=== PATIENT | female | born 1940 | race Caucasian/White ===

== ENCOUNTER → 2016-09-23 | Outpatient (CLI) | payer MEDICARE, BC ==
--- NOTE | 2016-09-23 13:48 | PCN ---
DATE OF SERVICE: 09/23/2016 STRESS ECHOCARDIOGRAM: INDICATION: Chest pain. BASELINE HEART RATE: 72 BASELINE BLOOD PRESSURE: 148/56 MAXIMUM HEART RATE: 123 MAXIMUM BLOOD PRESSURE: 187/102 85% MPHR: 124 100% MPHR: 146 METS: 7.0 MAXIMUM STAGE REACHED: 2 TOTAL EXERCISE TIME: 6:10 Baseline EKG shows sinus rhythm, normal axis, normal intervals. Patient exercised on Rohan protocol for a total of 6 minutes achieving 7 METS, 84% of predicted maximum heart rate without chest pain. At peak exercise, there was [address] segment depression noted. Baseline echo shows normal left ventricular size, wall motion and systolic function. Post-exercise, there is normal hyperdynamic response of all segments of myocardium noted. CONCLUSION: 1. Average exercise tolerance. 2. Abnormal stress test by EKG criteria. 3. Negative stress echo. MTDD
== END | disposition home or self-care (01) ==
LOC: RADNMMAIN 08:51
PROVIDERS: ATTEND Internal Medicine Geriatric Medicine
DX: R94.39 Abnormal result of other cardiovascular function study (principal); R07.9 Chest pain, unspecified
CPT/HCPCS: 93017; 93350

== ENCOUNTER → 2016-12-22 | Outpatient (CLI) | payer MEDICARE, BC ==
--- NOTE | 2016-12-23 09:13 | MM ---
Reason for exam: screening (asymptomatic). Last mammogram was performed 1 year ago. History: Patient is postmenopausal and history of other cancer. Family history of breast cancer in paternal aunt. Cancelled Right Mammotome of the right breast, January 27, 2006. Cancelled Procedure of the right breast, January 27, 2006. Benign core biopsy of both breasts, 2005. Took estrogen for 9 years beginning at age 53. Took progesterone for 9 years beginning at age 53. MG 3D Screening Mammo W/Cad Bilateral CC and MLO view(s) were taken. Prior study comparison: December 17, 2015, bilateral MG 3d screening mammo w/cad. June 01, 2014, bilateral MG screening mammo w CAD. April 07, 2013, CAD bilateral diagnostic mammogram. The breast tissue is extremely dense which could obscure a lesion on mammography. Finding: There are typically benign vascular, dystrophic, round, diffuse/scattered and grouped calcifications in both breasts, greaster in the left breast. Previous mammotome biopsy in the right and left breast. There is no discrete abnormality. ASSESSMENT: Benign, BI-RAD 2 RECOMMENDATION: Routine screening mammogram of both breasts in 1 year.
== END | disposition home or self-care (01) ==
LOC: RADMAMWWP 08:51
PROVIDERS: ATTEND Internal Medicine Geriatric Medicine
DX: Z12.31 Encounter for screening mammogram for malignant neoplasm of breast (principal)
CPT/HCPCS: 77063; G0202

== ENCOUNTER 2017-10-29 17:50 | Emergency (ER) | payer MEDICARE, BC ==
[2017-10-29 18:54] VITALS: BP 167/79; PULSE 69; RESP 18; TEMP 98.7
[2017-10-29] MEDS ORDERED: PROPARACAINE 0.5% OPHTH DROPS 15 ML BTL LEFT EYE STA (19:07)
--- NOTE | 2017-10-29 19:20 | ED ---
Eye Problem HPI - General Chief complaint: Eye Problems Stated complaint: put wrong drops in eye Time Seen by Provider: 10/29/17 18:52 Source: patient, RN notes reviewed Mode of arrival: ambulatory Limitations: no limitations - History of Present Illness Initial comments: This is a 77-year-old female who presents to the emergency department with chief complaint of left eye irritation. Patient reports placing the wrong medication into her left eye. She states that she was recently prescribed fluocinonide 0.05% topical solution for her scalp. She states that she was in a schroeder to leave the house and accidentally put the fluocinonide into her left eye instead of the normal eyedrops. Patient does report some eye irritation. Denies any vision loss or significant pain. Denies fevers or chills, chest pain or shortness of breath, abdominal pain, nausea or vomiting. - Related Data Home Medications Medication Instructions Recorded Confirmed Ibuprofen [Motrin] 200 mg PO Q6HR PRN 08/30/13 08/30/13 Allergies Allergy/AdvReac Type Severity Reaction Status Date / Time codeine Allergy Nausea & Verified 10/29/17 18:51 Vomiting & Diarrhea Review of Systems ROS Statement: Those systems with pertinent positive or pertinent negative responses have been documented in the HPI. ROS Other: All systems not noted in ROS Statement are negative. Past Medical History Past Medical History: Osteoarthritis (OA) Additional Past Medical History / Comment(s): HYPOTENSION. IP ADMISSION IN APR 2013 WITH C-DIFFICILE. diverticulitis History of Any Multi-Drug Resistant Organisms: None Reported Past Surgical History: Appendectomy, Section, Heart Catheterization, Orthopedic Surgery Additional Past Surgical History / Comment(s): RUPTURED APPENDIX WITH LAPROSCOPIC REMOVAL (05/12/2013) Past Anesthesia/Blood Transfusion Reactions: No Reported Reaction Past Psychological History: No Psychological Hx Reported Smoking Status: Former smoker Past Alcohol Use History: Occasional Past Drug Use History: None Reported General Exam - General Exam Comments Initial Comments: General: Awake and alert, well-developed; in no apparent distress. HEENT: Head atraumatic, normocephalic. Pupils are equal, round and reactive to light. Mildly erythematous left conjunctiva. On fluorescein staining, no abrasions or ulcers are noted. No foreign body. Negative Radha's test. Extraocular movements intact. Oropharynx moist without erythema or exudate. Neck: Supple. Normal ROM. Cardiovascular: Regular rate and rhythm. No murmurs, rubs or gallops. Chest symmetrical. Respiratory: Lungs clear to auscultation bilaterally. No wheezes, rales or rhonchi. Normal respiratory effort with no use of accessory muscles. Musculoskeletal: Normal ROM, no tenderness bilateral upper and lower extremities. Ambulating normally. Skin: [place], warm and dry without rashes or lesions. Neurological: Alert and oriented x3. CN II-XII grossly intact. Speech is fluent and answers are appropriate. No focal neuro deficits. Psychiatric: Normal mood and affect. No overt signs of depression or anxiety noted. Limitations: no limitations Course Vital Signs 10/29/17 18:51 Temperature 98.7 F Pulse Rate 69 Respiratory 18 Rate Blood Pressure 167/79 O2 Sat by Pulse 100 Oximetry Medical Decision Making - Medical Decision Making This is a 77-year-old female who presents to the emergency department with chief complaint of left eye irritation. Patient reports accidentally placing fluoresceins denied 0.05% topical solution into her left eye instead of her normal eyedrops. Denies any vision changes or loss. Does report some eye irritation. On physical examination, conjunctiva is mildly erythematous. On fluorescein staining, no abrasions or ulcers are noted. Patient's eye was thoroughly flushed with 500 mL of normal saline. I was in contact with poison control who recommended flushing and staining, however had no other recommendations but supportive care. Patient's vital signs are stable and she is in no acute distress. She will be discharged home at this time. She is in agreement and voices understanding. All questions were answered. Disposition Clinical Impression: Irritation of left eye Disposition: HOME SELF-CARE Condition: Good Instructions: Eye Foreign Body (ED) Additional Instructions: Please follow up with primary care provider within 1-2 days. Return to emergency department if symptoms should worsen or any concerns arise. Is patient prescribed a controlled substance at d/c from ED?: No Referrals: Osvaldo Rouse MD [Primary Care Provider] - 1-2 days Time of Disposition: 19:26
== END 2017-10-29 19:41 | disposition home or self-care (01) ==
LOC: EC 17:50
DX: H57.8 Other specified disorders of eye and adnexa (principal); Z87.891 Personal history of nicotine dependence; Z88.5 Allergy status to narcotic agent; Z95.818 Presence of other cardiac implants and grafts
CPT/HCPCS: 99283

== ENCOUNTER → 2018-01-11 | Outpatient (CLI) | payer MEDICARE, BC ==
--- NOTE | 2018-01-12 11:27 | MM ---
Reason for exam: screening (asymptomatic). Last mammogram was performed 1 year and 1 month ago. History: Patient is postmenopausal and history of other cancer. Family history of breast cancer in paternal aunt. Cancelled Right Mammotome of the right breast, January 27, 2006. Cancelled Procedure of the right breast, January 27, 2006. Benign core biopsy of both breasts, 2005. Took estrogen for 9 years beginning at age 53. Took progesterone for 9 years beginning at age 53. Physical Findings: A clinical breast exam by your physician is recommended on an annual basis and results should be correlated with mammographic findings. MG 3D Screening Mammo W/Cad Bilateral CC and MLO view(s) were taken. Prior study comparison: December 22, 2016, bilateral MG 3d screening mammo w/cad. December 17, 2015, bilateral MG 3d screening mammo w/cad. The breast tissue is extremely dense which could obscure a lesion on mammography. There are benign appearing round vascular dystrophic calcifications bilaterally. Previous mammotome biopsy in the right and left breast. There is no discrete abnormality. ASSESSMENT: Benign, BI-RAD 2 RECOMMENDATION: Routine screening mammogram of both breasts in 1 year.
== END | disposition home or self-care (01) ==
LOC: RADMAMWWP 07:58
PROVIDERS: ATTEND Internal Medicine Geriatric Medicine
DX: Z12.31 Encounter for screening mammogram for malignant neoplasm of breast (principal)
CPT/HCPCS: 77063; 77067

== ENCOUNTER → 2018-09-15 | Outpatient (CLI) | payer MEDICARE, BC ==
[2018-09-15 10:57] LABS: Basophils % (A) 1 %; Eosinophils # (A) 0.1 k/uL (0-0.7); Eosinophils % (A) 2 %; HCT 40.4 % (34.0-46.0); HGB 13.4 gm/dL (11.4-16.0); Lymphocytes # (A) 1.4 k/uL (1.0-4.8); Lymphocytes % (A) 28 %; MCH 30.9 pg (25.0-35.0); MCHC 33.1 g/dL (31.0-37.0); MCV 93.5 fL (80.0-100.0); Monocytes # (A) 0.3 k/uL (0-1.0); Monocytes % (A) 7 %; Neutrophils # (A) 2.8 k/uL (1.3-7.7); Neutrophils % (A) 58 %; Platelet Count 397 k/uL (150-450); RBC 4.32 m/uL (3.80-5.40); RDW 13.5 % (11.5-15.5); WBC 4.9 k/uL (3.8-10.6)
[2018-09-15 16:02] LABS: Iron Saturation 37.36 (12.00-45.00)
== END | disposition home or self-care (01) ==
LOC: LABWHC1 09:41
PROVIDERS: ATTEND Dermatology Procedural Dermatology
DX: R20.2 Paresthesia of skin (principal); L50.1 Idiopathic urticaria; L65.0 Telogen effluvium; L20.89 Other atopic dermatitis
CPT/HCPCS: 36415; 82728; 83540; 83550; 84439; 84443; 85025; 86038

== ENCOUNTER → 2019-01-23 | Outpatient (CLI) | payer MEDICARE, BC ==
--- NOTE | 2019-01-23 10:23 | BD ---
EXAMINATION TYPE: Axial Bone Density DATE OF EXAM: 01/23/2019 COMPARISON: NONE CLINICAL HISTORY: Postmenopausal female Height: 5 FT Weight: 121 FRAX RISK QUESTIONS: Family History (Parent hip fracture): YES History of Fracture in Adulthood: YES Secondary Osteoporosis: RISK FACTORS HISTORY OF: History of Wrist Fracture: RT WRIST When: 2011 Surgery to Spine/Hip(right/left)/Wrist (right/left): RT WRIST When: 2011 Family History of Osteoporosis: YES Active: YES Postmenopausal woman: AGE 53 Take estrogen and/or progesterone medications: TOOK FOR A NUMBER OF YEARS NO LONGER MEDICATIONS: Additional Medications: CHOLESTEROL MEDS, Additional History: EXAM MEASUREMENTS: Bone mineral densitometry was performed using the Q-Sensei System. Bone mineral density as measured about the Lumbar spine is: ----- L1-L4(G/cm2): 1.197 T Score Values are as follows: ----- L2: -0.4 ----- L3: 0.4 ----- L4: 0.9 ----- L1-L4: 0.1 Bone mineral density has: INCREASED 5.4 % since study of: 2003 Bone mineral density about the R hip (g/cm2): 0.623 Bone mineral density about the L hip (g/cm2): 0.613 T Score values are as follows: -----R Neck: -3.0 -----L Neck: -3.1 -----R Total: -2.2 -----L Total: -2.3 Bone mineral density has: DECREASED -13.2 % since study of: 2003 IMPRESSION: Osteopenia (T Score between -2.5 and -1). There is slightly increased risk of fracture and the patient may be considered for treatment. Re-Screen 2-5 years. NOTE: T-SCORE=SD OF THE YOUNG ADULT MEAN.
--- NOTE | 2019-01-24 10:57 | MM ---
Reason for exam: screening (asymptomatic). Last mammogram was performed 1 year ago. History: Patient is postmenopausal and history of other cancer. Family history of breast cancer in paternal aunt. Cancelled Right Mammotome of the right breast, January 27, 2006. Cancelled Procedure of the right breast, January 27, 2006. Benign core biopsy of both breasts, 2005. Took estrogen for 9 years beginning at age 53. Took progesterone for 9 years beginning at age 53. Physical Findings: A clinical breast exam by your physician is recommended on an annual basis and results should be correlated with mammographic findings. MG 3D Screening Mammo W/Cad Bilateral CC and MLO view(s) were taken. Prior study comparison: January 11, 2018, bilateral MG 3d screening mammo w/cad. December 22, 2016, bilateral MG 3d screening mammo w/cad. The breast tissue is heterogeneously dense. This may lower the sensitivity of mammography. Benign appearing bilateral calcifications. No suspicious abnormality. Bilateral biopsy markers present. No significant changes when compared with prior studies. ASSESSMENT: Benign, BI-RAD 2 RECOMMENDATION: Routine screening mammogram of both breasts in 1 year.
== END | disposition home or self-care (01) ==
LOC: RADMAMWWP 09:20
PROVIDERS: ATTEND Internal Medicine Geriatric Medicine
DX: Z12.31 Encounter for screening mammogram for malignant neoplasm of breast (principal); M85.80 Other specified disorders of bone density and structure, unspecified site
CPT/HCPCS: 77063; 77067; 77080

== ENCOUNTER → 2019-02-22 | Outpatient (CLI) | payer MEDICARE, BC ==
--- NOTE | 2019-02-23 08:28 | CT ---
EXAMINATION TYPE: CT abdomen pelvis w con DATE OF EXAM: 02/22/2019 HISTORY: Diverticulitis, abdominal pain x1 month CT DLP: 374.9mGycm Automated Exposure Control for Dose Reduction was Utilized. CONTRAST: CT scan of the abdomen and pelvis is performed with IV Contrast, patient injected with 100 mL of Isov ue 300. COMPARISON: CT abdomen and pelvis May 19, 2013 FINDINGS: LUNG BASES: There is 5 mm groundglass nodule or focus of groundglass opacity right lower lobe axial i mage 1. LIVER/GB: Cholecystectomy clips are redemonstrated. PANCREAS: No significant abnormality is seen. SPLEEN: No significant abnormality is seen. ADRENALS: No significant abnormality is seen. KIDNEYS: No significant abnormality is seen. BOWEL: The oral contrast reaches the level of the proximal transverse colon and thus the evaluation o f distal bowel is suboptimal. Patient has little intra-abdominal fat making evaluation slightly subop timal. Diverticula in the sigmoid colon are redemonstrated without significant surrounding fluid or f at stranding. Mild/moderate wall thickening is noted. No suspicious small or large bowel dilatation. Surgical changes at base of cecum. UTERUS/ADNEXA: Retroverted uterus with calcified fibroids is now present. LYMPH NODES: No greater than 1cm abdominal or pelvic lymph nodes are appreciated. OSSEOUS STRUCTURES: Vacuum disc phenomenon with mild disc space narrowing L4-L5 level. Vacuum disc ph enomenon with fairly severe disc space narrowing and endplate sclerosis left L5-S1 level. Facet arthr opathy lower lumbar spine. OTHER: No significant additional abnormality is seen. IMPRESSION: Possible mild colitis sigmoid colon in the pelvis. Differential includes infectious and i nflammatory etiologies. Underlying diverticulosis redemonstrated.
== END | disposition home or self-care (01) ==
LOC: RADCTMAIN 14:19
PROVIDERS: ATTEND Internal Medicine Geriatric Medicine
DX: K57.30 Diverticulosis of large intestine without perforation or abscess without bleeding (principal)
CPT/HCPCS: 82565; 84520; 74177; 36415; Q9967

== ENCOUNTER 2019-03-10 12:17 | Day surgery (SDC) | payer MEDICARE, BC ==
[2019-03-08 17:25] VITALS: BMI 22.3
[~2019-03-10 12:17] MED LIST: LACTATED RINGERS 1,000 ML IV SCH; LIDOCAINE 1% 20 ML VIAL (10MG/ML) FOR IV START INTRADERMA PRN
[2019-03-10 13:03] VITALS: RESP 16; TEMP 98.2
[2019-03-10] MEDS ORDERED: MIDAZOLAM 2 MG/2 ML VIAL ONE (13:57)
[2019-03-10] MEDS ORDERED: fentaNYL (PF) 50 MCG/ML 2 ML AMP ONE (13:57)
[2019-03-10] MEDS ORDERED: PROPOFOL 10 MG/ML 20 ML VIAL IV ONE (13:57)
--- NOTE | 2019-03-10 14:15 | P.PCN ---
Date of Procedure: 03/10/19 Procedure(s) Performed: BRIEF HISTORY: Patient is a 78-year-old pleasant white female scheduled for an elective colonoscopy as a part of value should of chronic diarrhea for the last 2 months duration. She has bowel movements anywhere from 5-6 a day which are loose to watery in consistency but no blood or mucus in the stool. She is hence scheduled for colonoscopy to evaluate further. PROCEDURE PERFORMED: Colonoscopy with biopsy. PREOPERATIVE DIAGNOSIS: Chronic diarrhea. IV sedation per Anesthesia. PROCEDURE: After informed consent was obtained, the patient, was brought into the endoscopy unit. IV sedation was administered by Anesthesia under continuous monitoring. Digital rectal examination was normal. Initially the Olympus CF-160 flexible video colonoscope was then inserted in the rectum, gradually advanced into the cecum without any difficulty. Careful examination was performed as the scope was gradually being withdrawn. Ileocecal valve and the appendiceal orifice were visualized and appeared normal. Prep was excellent. Mucosa of the cecum, ascending colon, transverse colon, descending colon, sigmoid colon, and rectum appeared normal. Random biopsies were done from ascending and descending colon to rule out metastatic/collagenous colitis. Scattered sigmoidal diverticulosis. Retroflexion was performed in the rectum and no lesions were seen. The patient tolerated the procedure well. IMPRESSION: Normal-appearing colon from rectum to cecum with no evidence of colorectal neoplasia . Scattered sigmoidal diverticulosis. RECOMMENDATIONS: Findings of this examination were discussed with the patient as well as a family. She was advised to follow with the biopsy results. In the meantime she was advised to use [id number] Imodium 1 tablet were 3 times daily as needed.
[2019-03-10 14:20] VITALS: PULSE 74
[2019-03-10 15:09] VITALS: BP 117/76
== END 2019-03-10 15:04 | disposition home or self-care (01) ==
LOC: ORWHC2ENDO 12:17
PROVIDERS: ATTEND Internal Medicine Gastroenterology
DX: K52.9 Noninfective gastroenteritis and colitis, unspecified (principal); K57.30 Diverticulosis of large intestine without perforation or abscess without bleeding; M19.90 Unspecified osteoarthritis, unspecified site; Z88.5 Allergy status to narcotic agent; Z87.891 Personal history of nicotine dependence; Z79.899 Other long term (current) drug therapy; Z90.49 Acquired absence of other specified parts of digestive tract; Z98.890 Other specified postprocedural states
CPT/HCPCS: 88305; 45380; J2250; J3010; J2704

== ENCOUNTER 2019-05-05 12:59 | Inpatient (IN) | payer MEDICARE, BC ==
[2019-05-05] MEDS ORDERED: DIPH,PERTUS(ACELL)TETVAC-LF 0.5 ML VIAL IM ONE (13:15)
--- NOTE | 2019-05-05 13:20 | ED ---
General Adult HPI - General Chief complaint: Dizziness Stated complaint: syncope, head injury Time Seen by Provider: 05/05/19 13:00 Source: patient, RN notes reviewed, old records reviewed Mode of arrival: wheelchair - History of Present Illness Initial comments: This is a 78-year-old female presents emergency pertinent stating she's had a history of the past of diverticulitis. Patient states yesterday the abdominal pain started again and felt like her diverticulitis. Patient states she didn't eat or drink anything yesterday because he typically makes her symptoms worse. Patient states she started feeling lightheaded so she decided she has to go get some hot water or something in the kitchen so she doesn't get lightheaded. Patient states she was standing there in the kitchen and next thing she knows she woke up on the ground and she hit the back of her head and there was a little blood. Patient states she has a mild headache no neck pain. Patient denies any chest pain palpitations difficulty breathing shortness of breath. Patient states she still has lower abdominal pain she says is mostly on the left but there is a little bit on the right as well. Patient denies any recent fever chills per patient denies any dysuria hematuria urinary frequency. - Related Data Home Medications Medication Instructions Recorded Confirmed Rosuvastatin Calcium 5 mg PO DAILY 03/08/19 03/10/19 Allergies Allergy/AdvReac Type Severity Reaction Status Date / Time codeine Allergy Nausea & Verified 05/05/19 13:06 Vomiting & Diarrhea Review of Systems ROS Statement: Those systems with pertinent positive or pertinent negative responses have been documented in the HPI. ROS Other: All systems not noted in ROS Statement are negative. Past Medical History Past Medical History: Hyperlipidemia, Osteoarthritis (OA) Additional Past Medical History / Comment(s): having occasional diarrhea and stomach cramping, hx diverticulitis History of Any Multi-Drug Resistant Organisms: C-DIFF Date of last positivie culture/infection: 2013 Past Surgical History: Appendectomy, Section, Cholecystectomy, Heart Catheterization, Orthopedic Surgery Additional Past Surgical History / Comment(s): RUPTURED APPENDIX WITH LAPROSCOPIC REMOVAL (05/12/2013) rt wrist ORIF with plate and screws, manda cataracts Past Anesthesia/Blood Transfusion Reactions: No Reported Reaction Past Psychological History: No Psychological Hx Reported Smoking Status: Former smoker Past Alcohol Use History: Rare Past Drug Use History: None Reported - Past Family History Father Family Medical History: Cancer Additional Family Medical History / Comment(s): skin General Exam - General Exam Comments Initial Comments: GENERAL: Patient is well-developed and well-nourished. Patient is nontoxic and well- hydrated and is in mild distress. ENT: Neck is soft and supple. No significant lymphadenopathy is noted. Oropharynx is clear. Moist mucous membranes. Neck has full range of motion without eliciting any pain. EYES: The sclera were anicteric and conjunctiva were pink and moist. Extraocular movements were intact and pupils were equal round and reactive to light. Eyelids were unremarkable. PULMONARY: Unlabored respirations. Good breath sounds bilaterally. No audible rales rhonchi or wheezing was noted. CARDIOVASCULAR: There is a regular rate and rhythm without any murmurs gallops or rubs. ABDOMEN: Patient has tenderness in the left lower quadrant palpation and slight tenderness in the right lower quadrant. SKIN: Patient has a small laceration back of the head NEUROLOGIC: Patient is alert and oriented x3. Cranial nerves II through XII are grossly intact. Motor and sensory are also intact. Normal speech, volume and content. Symmetrical smile. MUSCULOSKELETAL: Normal extremities with adequate strength and full range of motion. No lower extremity swelling or edema. No calf tenderness. LYMPHATICS: No significant lymphadenopathy is noted PSYCHIATRIC: Normal psychiatric evaluation. Course Vital Signs 05/05/19 13:02 Temperature 98.6 F Pulse Rate 81 Respiratory 18 Rate Blood Pressure 150/77 O2 Sat by Pulse 100 Oximetry Procedures - Laceration Laceration #1 Consent Obtained: verbal consent Indication: laceration Site: scalp Description: linear Depth: simple, single layer Size of Sutures: other ([place]) Number of Sutures: 2 Technique: simple, interrupted Complications: pain Patient Tolerated Procedure: well Medical Decision Making - Medical Decision Making EKG shows normal sinus rhythm at 76 bpm NC interval is 172 QRS is 70 QT interval 46 QTC is 456. Patient's EKG shows no ST segment elevation or depression. - Lab Data Result diagrams: 05/05/19 13:24 05/05/19 13:24 Lab Results 05/05/19 05/05/19 05/05/19 Range/Units 13:24 13:24 13:24 WBC 14.2 H (3.8-10.6) k/uL RBC 4.54 (3.80-5.40) m/uL Hgb 14.1 (11.4-16.0) gm/dL Hct 43.0 (34.0-46.0) % MCV 94.6 (80.0-100.0) fL MCH 31.1 (25.0-35.0) pg MCHC 32.8 (31.0-37.0) g/dL RDW 13.2 (11.5-15.5) % Plt Count 331 (150-450) k/uL Neutrophils % 90 % Lymphocytes % 4 % Monocytes % 5 % Eosinophils % 0 % Basophils % 0 % Neutrophils # 12.7 H (1.3-7.7) k/uL Lymphocytes # 0.6 L (1.0-4.8) k/uL Monocytes # 0.7 (0-1.0) k/uL Eosinophils # 0.1 (0-0.7) k/uL Basophils # 0.0 (0-0.2) k/uL PT 9.8 (9.0-12.0) sec INR 0.9 (<1.2) APTT 23.7 (22.0-30.0) sec Sodium 137 (137-145) mmol/L Potassium 4.0 (3.5-5.1) mmol/L Chloride 102 (98-107) mmol/L Carbon Dioxide 25 (22-30) mmol/L Anion Gap 10 mmol/L BUN 11 (7-17) mg/dL Creatinine 0.57 (0.52-1.04) mg/dL Est GFR (CKD-EPI)AfAm >90 (>60 ml/min/1.73 sqM) Est GFR (CKD-EPI)NonAf >90 (>60 ml/min/1.73 sqM) Glucose 135 H (74-99) mg/dL Calcium 9.0 (8.4-10.2) mg/dL Magnesium 2.0 (1.6-2.3) mg/dL Total Bilirubin 1.0 (0.2-1.3) mg/dL AST 29 (14-36) U/L ALT 15 (4-34) U/L Alkaline Phosphatase 97 (38-126) U/L Troponin I (0.000-0.034) ng/mL Total Protein 7.1 (6.3-8.2) g/dL Albumin 4.1 (3.5-5.0) g/dL Urine Color Urine Appearance (Clear) Urine pH (5.0-8.0) Ur Specific [place] (1.001-1.035) Urine Protein (Negative) Urine Glucose (UA) (Negative) Urine Ketones (Negative) Urine Blood (Negative) Urine Nitrite (Negative) Urine Bilirubin (Negative) Urine Urobilinogen (<2.0) mg/dL Ur Leukocyte Esterase (Negative) Urine RBC (0-5) /hpf Urine WBC (0-5) /hpf 05/05/19 05/05/19 Range/Units 13:24 14:59 WBC (3.8-10.6) k/uL RBC (3.80-5.40) m/uL Hgb (11.4-16.0) gm/dL Hct (34.0-46.0) % MCV (80.0-100.0) fL MCH (25.0-35.0) pg MCHC (31.0-37.0) g/dL RDW (11.5-15.5) % Plt Count (150-450) k/uL Neutrophils % % Lymphocytes % % Monocytes % % Eosinophils % % Basophils % % Neutrophils # (1.3-7.7) k/uL Lymphocytes # (1.0-4.8) k/uL Monocytes # (0-1.0) k/uL Eosinophils # (0-0.7) k/uL Basophils # (0-0.2) k/uL PT (9.0-12.0) sec INR (<1.2) APTT (22.0-30.0) sec Sodium (137-145) mmol/L Potassium (3.5-5.1) mmol/L Chloride (98-107) mmol/L Carbon Dioxide (22-30) mmol/L Anion Gap mmol/L BUN (7-17) mg/dL Creatinine (0.52-1.04) mg/dL Est GFR (CKD-EPI)AfAm (>60 ml/min/1.73 sqM) Est GFR (CKD-EPI)NonAf (>60 ml/min/1.73 sqM) Glucose (74-99) mg/dL Calcium (8.4-10.2) mg/dL Magnesium (1.6-2.3) mg/dL Total Bilirubin (0.2-1.3) mg/dL AST (14-36) U/L ALT (4-34) U/L Alkaline Phosphatase (38-126) U/L Troponin I <0.012 (0.000-0.034) ng/mL Total Protein (6.3-8.2) g/dL Albumin (3.5-5.0) g/dL Urine Color Light Yellow Urine Appearance Clear (Clear) Urine pH 7.0 (5.0-8.0) Ur Specific [place] 1.028 (1.001-1.035) Urine Protein Negative (Negative) Urine Glucose (UA) Negative (Negative) Urine Ketones Trace H (Negative) Urine Blood Moderate H (Negative) Urine Nitrite Negative (Negative) Urine Bilirubin Negative (Negative) Urine Urobilinogen <2.0 (<2.0) mg/dL Ur Leukocyte Esterase Negative (Negative) Urine RBC 20 H (0-5) /hpf Urine WBC 1 (0-5) /hpf Disposition Clinical Impression: Abdominal pain, Scalp laceration, Enteritis Disposition: ADMITTED IP TO THIS [facility] Referrals: Osvaldo Rouse MD [Primary Care Provider] - 1-2 days Time of Disposition: 16:28
[2019-05-05] MEDS ORDERED: ONDANSETRON 4 MG/2 ML VIAL IVP STA (13:23)
[2019-05-05] MEDS ORDERED: SODIUM CHLORIDE 0.9% 1,000 ML IV ONE ×2 (13:23→16:31)
[2019-05-05 13:41] LABS: Basophils % (A) 0 %; Eosinophils # (A) 0.1 k/uL (0-0.7); Eosinophils % (A) 0 %; HGB 14.1 gm/dL (11.4-16.0); Lymphocytes # (A) 0.6 k/uL (1.0-4.8); Lymphocytes % (A) 4 %; MCH 31.1 pg (25.0-35.0); MCHC 32.8 g/dL (31.0-37.0); MCV 94.6 fL (80.0-100.0); Mean Platelet Volume 7.1; Monocytes # (A) 0.7 k/uL (0-1.0); Monocytes % (A) 5 %; Neutrophils # (A) 12.7 k/uL (1.3-7.7); Neutrophils % (A) 90 %; Platelet Count 331 k/uL (150-450); RBC 4.54 m/uL (3.80-5.40); RDW 13.2 % (11.5-15.5); WBC 14.2 k/uL (3.8-10.6)
[2019-05-05 13:50] LABS: ALT 15 U/L (4-34); AST 29 U/L (14-36); African American GFR (CKD) >90 (>60 ml/min/1.73 sqM); Albumin 4.1 g/dL (3.5-5.0); Alkaline Phosphatase 97 U/L (38-126); Anion Gap 10 mmol/L; Blood Urea Nitrogen 11 mg/dL (7-17); Carbon Dioxide 25 mmol/L (22-30); Chloride 102 mmol/L (98-107); Glucose 135 mg/dL (74-99); Non-African American GFR(CKD) >90 (>60 ml/min/1.73 sqM); Sodium 137 mmol/L (137-145); Total Protein 7.1 g/dL (6.3-8.2)
[2019-05-05 13:52] LABS: INR 0.9 (<1.2); Partial Thromboplastin Time 23.7 sec (22.0-30.0); Prothrombin Time 9.8 sec (9.0-12.0)
--- NOTE | 2019-05-05 14:25 | CT ---
EXAMINATION TYPE: CT brain marshaine wo con DATE OF EXAM: 05/05/2019 COMPARISON: None HISTORY: posterior head trauma CT DLP: 1243 mGycm Automated exposure control for dose reduction was used. TECHNIQUE: CT scan of the head and cervical spine are performed without contrast. FINDINGS: Mild generalized degenerative change. Faint low-attenuation within the white matter is no nspecific most pronounced in the superior left parietal lobe. No midline shift or mass effect. No acu te hemorrhage. Intracranial atherosclerotic changes noted. Calvarium intact. Posteriorly along the po sterior right calvarium there is an area of low attenuation difficult to determine is whether this re presents fat attenuation or air correlate for soft tissue injury along the posterior right calvarium with possible laceration and small hematoma. No calvarial fracture. Osteoma the right parietal bone a lso noted incidentally. Calcifications in the basal ganglia noted. Assessment spinal canal is limited by noncontrast technique, resolution and artifact. There is severe degenerative disc disease at C3-4, C4-5 and C5-C6. Posterior spondylosis and possible canal stenosis with bilateral foraminal encroachment suspected. Recommend follow-up MRI. No acute fracture. Atheros clerotic change of the aortic arch incidentally noted. Pleural-based thickening greater on the right involving the lung apices. IMPRESSION: 1. There is no acute fracture or dislocation evident in the cervical spine. Severe multilevel degener ative disc disease with suspected canal stenosis and foraminal encroachment as discussed above. Recom mend follow-up MRI. 2. No acute intracranial hemorrhage, mass effect, or midline shift is seen. Degenerative and nonspeci fic white matter changes most typical remote microvascular ischemia. Soft tissue injury with lacerati on and subcutaneous emphysema along the posterior right parietal bone correlate clinically. No calvar ial fracture.
--- NOTE | 2019-05-05 14:38 | CT ---
EXAMINATION TYPE: CT abdomen pelvis w con DATE OF EXAM: 05/05/2019 COMPARISON: Prior CT 02/22/2019 HISTORY: llq pain, posterior head trauma CT DLP: 598.9 mGycm Automated exposure control for dose reduction was used. TECHNIQUE: Helical acquisition of images from the lung bases through the pelvis have been completed. CONTRAST: Performed without Oral Contrast and with IV Contrast, patient injected with 100 mL of Isovue 300. FINDINGS: Umbilical hernia contains fat. Fluid-filled stomach is noted incidentally. LUNG BASES: No significant abnormality is appreciated. AORTA: No significant abnormality is appreciated. LIVER/GB: Liver shows no mass. There are mildly dilated intrahepatic biliary ducts likely due to post cholecystectomy change. PANCREAS: No significant abnormality is seen. SPLEEN: No significant abnormality is seen. ADRENALS: No significant abnormality is seen. KIDNEYS: No significant abnormality is seen. REPRODUCTIVE ORGANS: The uterus is bulky and shows associated calcifications suggesting fibroid uteru s. BOWEL: Small bowel loops show some wall thickening, questionable hyperemia, some loops of bowel show luminal fluid density. The colon mitchell show some marked thickening within the pelvis. There is assoc iated diverticular change. Patient is post appendectomy. No oral contrast administered. Mesenteric fa t shows some increased attenuation possibly due to inflammatory change. FREE AIR: No Free Air visible. ASCITES: None visible. PELVIC ADENOPATHY: None visualized. RETROPERITONEAL ADENOPATHY: No Retroperitoneal Adenopathy visible. URINARY BLADDER: No significant abnormality is seen. OSSEOUS STRUCTURES: Degenerative disc changes are present in the lower lumbar spine. There is associ ated facet arthropathy. There is a spinal curvature. IMPRESSION: CORRELATE FOR ENTERITIS, COLITIS, POSSIBLE PERITONITIS. DIVERTICULOSIS. FOLLOW-UP IS SUGGESTED.
[2019-05-05 15:17] LABS: Appearance,Urine Clear (Clear); Bilirubin,Urine Negative (Negative); Blood,Urine Moderate (Negative); Color,Urine Light Yellow; Glucose,Urine (UA) Negative (Negative); Ketones,Urine Trace (Negative); Leukocyte Esterase,Urine Negative (Negative); Nitrite,Urine Negative (Negative); Protein,Urine Negative (Negative); RBC,Urine 20 /hpf (0-5); Specific Gravity,Urine 1.028 (1.001-1.035); Urobilinogen,Urine <2.0 mg/dL (<2.0); WBC,Urine 1 /hpf (0-5)
--- NOTE | 2019-05-05 15:48 | XR ---
EXAMINATION TYPE: XR chest 2V DATE OF EXAM: 05/05/2019 COMPARISON: Prior chest x-ray 08/30/2010 HISTORY: Chest pain TECHNIQUE: Frontal and lateral views of the chest are obtained. FINDINGS: There is no focal air space opacity, pleural effusion, or pneumothorax seen. The cardiac silhouette size is within normal limits. The osseous structures are intact. There are overlying car diac leads. Surgical clips are present in the right upper quadrant. The aorta is dense. Evidence of p revious breast biopsy is suspected. IMPRESSION: No acute cardiopulmonary process.
[2019-05-05] MEDS ORDERED: metroNIDAZOLE-NS PMX 500 MG in SALINE 1 100ML.BAG IVPB STA (16:33)
[2019-05-05] MEDS ORDERED: PIPERACILLIN-TAZOBACTAM 3.375 GM in SODIUM CHLORIDE 0.9% 100 ML IVPB STA (16:34)
[2019-05-05] MEDS ORDERED: ACETAMINOPHEN TAB 325 MG TAB PO STA (16:45)
[2019-05-05] MEDS ORDERED: ACETAMINOPHEN TAB 325 MG TAB PO PRN (21:22)
[2019-05-05] MEDS: MELATONIN 5 MG TABLET PO PRN (22:04)
[2019-05-05] MEDS: ATORVASTATIN 10 MG TAB PO SCH (22:04)
[2019-05-05] MEDS: metroNIDAZOLE-NS PMX 500 MG in SALINE 1 100ML.BAG IVPB SCH (23:26)
[2019-05-06] MEDS: PIPERACILLIN-TAZOBACTAM 3.375 GM in SODIUM CHLORIDE 0.9% 100 ML IVPB SCH ×3 (00:30→16:43)
[2019-05-06] MEDS: metroNIDAZOLE-NS PMX 500 MG in SALINE 1 100ML.BAG IVPB SCH ×4 (05:48→23:29)
[2019-05-06] MEDS: PANTOPRAZOLE 40 MG/10 ML VIAL IVP SCH (08:35)
--- NOTE | 2019-05-06 11:41 | P.GSCN ---
History of Present Illness Consult date: 05/06/19 Reason for Consult: Diverticulitis History of present illness: This a 78-year-old female with previous history of diverticula is. Patient stat es that she has had crampy abdominal pain in the left lower quadrant for several days prior to admission. Patient that she was dehydrated and had a syncopal episode at home. She had a scalp laceration stapled in the emergency room. She still has complaints of some left-sided abdominal pain. Her CAT scan is suspicious for diverticulitis and possible enteritis. The colon is quite thickened in the pelvis. And there is some thickened adjacent loops of small bowel. Patient isn't she's had multiple attacks of diverticulitis in the past. Past Medical History Past Medical History: Hyperlipidemia, Osteoarthritis (OA) Additional Past Medical History / Comment(s): having occasional diarrhea and stomach cramping, hx diverticulitis History of Any Multi-Drug Resistant Organisms: C-DIFF Year Discovered:: 2013 MDRO Source:: stool Past Surgical History: Appendectomy, Section, Cholecystectomy, Heart Catheterization, Orthopedic Surgery Additional Past Surgical History / Comment(s): RUPTURED APPENDIX WITH LAPROSCOPIC REMOVAL (05/12/2013) rt wrist ORIF with plate and screws, manda cataracts Past Anesthesia/Blood Transfusion Reactions: No Reported Reaction Past Psychological History: No Psychological Hx Reported Smoking Status: Former smoker Past Alcohol Use History: Occasional Additional Past Alcohol Use History / Comment(s): quit smoking 30-40 yrs ago, smoked less than 1ppd Past Drug Use History: None Reported - Past Family History Father Family Medical History: Cancer Additional Family Medical History / Comment(s): skin Medications and Allergies Home Medications Medication Instructions Recorded Confirmed Type Rosuvastatin Calcium 5 mg PO HS 03/08/19 05/05/19 History Alendronate Sodium [Fosamax] 70 mg PO TU 05/05/19 05/05/19 History Allergies Allergy/AdvReac Type Severity Reaction Status Date / Time codeine Allergy Nausea & Verified 05/05/19 16:31 Vomiting & Diarrhea Surgical - Exam Vital Signs Temp Pulse Resp BP Pulse Ox 98.6 F 81 18 150/77 100 05/05/19 13:02 05/05/19 13:02 05/05/19 13:02 05/05/19 13:02 05/05/19 13:02 - General well developed - Eyes PERRL - ENT normal pinna - Neck no masses - Respiratory normal expansion - Cardiovascular Rhythm: regular - Abdomen Abdomen soft. There is tenderness left lower quadrant. There is no rebound or guarding Results - Labs 05/05/19 13:24 05/05/19 13:24 Abnormal Lab Results - Last 24 Hours (Table) 05/05/19 05/05/19 05/05/19 Range/Units 13:24 13:24 14:59 WBC 14.2 H (3.8-10.6) k/uL Neutrophils # 12.7 H (1.3-7.7) k/uL Lymphocytes # 0.6 L (1.0-4.8) k/uL Glucose 135 H (74-99) mg/dL Urine Ketones Trace H (Negative) Urine Blood Moderate H (Negative) Urine RBC 20 H (0-5) /hpf Diabetes panel 05/05/19 Range/Units 13:24 Sodium 137 (137-145) mmol/L Potassium 4.0 (3.5-5.1) mmol/L Chloride 102 (98-107) mmol/L Carbon Dioxide 25 (22-30) mmol/L BUN 11 (7-17) mg/dL Creatinine 0.57 (0.52-1.04) mg/dL Glucose 135 H (74-99) mg/dL Calcium 9.0 (8.4-10.2) mg/dL AST 29 (14-36) U/L ALT 15 (4-34) U/L Alkaline Phosphatase 97 (38-126) U/L Total Protein 7.1 (6.3-8.2) g/dL Albumin 4.1 (3.5-5.0) g/dL Calcium panel 05/05/19 Range/Units 13:24 Calcium 9.0 (8.4-10.2) mg/dL Albumin 4.1 (3.5-5.0) g/dL Pituitary panel 05/05/19 Range/Units 13:24 Sodium 137 (137-145) mmol/L Potassium 4.0 (3.5-5.1) mmol/L Chloride 102 (98-107) mmol/L Carbon Dioxide 25 (22-30) mmol/L BUN 11 (7-17) mg/dL Creatinine 0.57 (0.52-1.04) mg/dL Glucose 135 H (74-99) mg/dL Calcium 9.0 (8.4-10.2) mg/dL Adrenal panel 05/05/19 Range/Units 13:24 Sodium 137 (137-145) mmol/L Potassium 4.0 (3.5-5.1) mmol/L Chloride 102 (98-107) mmol/L Carbon Dioxide 25 (22-30) mmol/L BUN 11 (7-17) mg/dL Creatinine 0.57 (0.52-1.04) mg/dL Glucose 135 H (74-99) mg/dL Calcium 9.0 (8.4-10.2) mg/dL Total Bilirubin 1.0 (0.2-1.3) mg/dL AST 29 (14-36) U/L ALT 15 (4-34) U/L Alkaline Phosphatase 97 (38-126) U/L Total Protein 7.1 (6.3-8.2) g/dL Albumin 4.1 (3.5-5.0) g/dL Assessment and Plan Assessment: Abdominal pain Diverticulosis Possible enteritis Patient will remain on IV fluids and antibiotic. We will observe her carefully.
[2019-05-06] MEDS ORDERED: ONDANSETRON 4 MG/2 ML VIAL IVP PRN (12:08)
[2019-05-06] MEDS ORDERED: KETOROLAC 30 MG/ML 1 ML VIAL IVP PRN (12:18)
[2019-05-06] MEDS: SODIUM CHLORIDE 0.9% 1,000 ML IV SCH ×2 (12:46→16:42)
--- NOTE | 2019-05-06 16:56 | P.HPIM ---
History of Present Illness H&P Date: 05/06/19 Chief Complaint: abd pain This is a 78-year-old female patient of Dr. Rouse with past medical history of hyperlipidemia, osteoarthritis. Patient complains of significant abdominal pain in the lower abdomen across the mid area that started on . As she was using a warm pack and was only taking sips of water not eating any food. She states she lost her appetite. She thought she had some fever and chills. She is was walking to the kitchen and she felt terrible week and no dizziness all of a sudden she had a loss of consciousness and landed on the floor hitting her head. She is not sure how long she was on the floor or had loss of consciousness then she got up and went into the bedroom and slept. She will woke up and found blood on her pillow and realized that she had cut the back of her head. She called her grandson around noon and he brought her in the hospital. She states she had an episode about 4 years ago of the same type of symptoms. She denies having any palpitations. She did have some multiple stools on evening but were not watery. She denies any history of constipation. Patient states that she recently had a colonoscopy 6-[address] Pacheco. Patient came into the [facility] emergency center. CAT scan of the abdomen and pelvis correlate for enteritis colitis, possible peritonitis, diverticulosis. Chest x-ray showed no acute findings. CAT scan of the brain revealed no acute bleed. EKG was in normal sinus rhythm without ST-T wave changes. Chest x-rays in no acute findings. Patient had macie 2 placed and to the back of her skull laceration. Patient was admitted to the [facility] and consult with general surgery. Review of Systems Constitutional: Reports fatigue, Reports poor appetite, Reports weakness, Denies chills, Denies fever Eyes: denies blurred vision, denies pain Ears, nose, mouth and throat: Denies headache, Denies sore throat, Denies vertigo Cardiovascular: Reports syncope, Denies chest pain, Denies lightheadedness, Denies shortness of breath Respiratory: Denies cough, Denies cough with sputum, Denies dyspnea, Denies excessive sputum, Denies hemoptysis, Denies home oxygen, Denies respiratory infections Gastrointestinal: Reports abdominal pain, Reports loss of appetite, Denies constipation, Denies diarrhea, Denies nausea, Denies vomiting Genitourinary: Denies dysuria, Denies hematuria, Denies urgency, Denies urinary frequency Musculoskeletal: Denies frequent falls, Denies gait dysfunction, Denies muscle weakness, Denies myalgias Integumentary: Denies pruritus, Denies rash, Denies wounds Neurological: Denies change in mentation, Denies change in speech, Denies numbness, Denies weakness Psychiatric: Denies anxiety, Denies depression Endocrine: Denies fatigue, Denies weight change Past Medical History Past Medical History: Hyperlipidemia, Osteoarthritis (OA) Additional Past Medical History / Comment(s): having occasional diarrhea and stomach cramping, hx diverticulitis History of Any Multi-Drug Resistant Organisms: C-DIFF Date of last positivie culture/infection: 2013 MDRO Source:: stool Past Surgical History: Appendectomy, Section, Cholecystectomy, Heart Catheterization, Orthopedic Surgery Additional Past Surgical History / Comment(s): RUPTURED APPENDIX WITH LAPROSCOPIC REMOVAL (05/12/2013) rt wrist ORIF with plate and screws, manda cataracts Past Anesthesia/Blood Transfusion Reactions: No Reported Reaction Past Psychological History: No Psychological Hx Reported Smoking Status: Former smoker Past Alcohol Use History: Occasional Additional Past Alcohol Use History / Comment(s): quit smoking 30-40 yrs ago, smoked less than 1ppd Past Drug Use History: None Reported - Past Family History Father Family Medical History: Cancer Additional Family Medical History / Comment(s): skin Medications and Allergies Home Medications Medication Instructions Recorded Confirmed Type Rosuvastatin Calcium 5 mg PO HS 03/08/19 05/05/19 History Alendronate Sodium [Fosamax] 70 mg PO TU 05/05/19 05/05/19 History Allergies Allergy/AdvReac Type Severity Reaction Status Date / Time codeine Allergy Nausea & Verified 05/05/19 16:31 Vomiting & Diarrhea Physical Exam Vitals: Vital Signs Temp Pulse Pulse Pulse Resp BP BP 05/06/19 11:29 98 F 76 16 130/65 05/06/19 08:35 70 71 16 05/06/19 04:48 98.2 F 70 16 115/55 05/05/19 21:04 98.2 F 71 16 136/62 05/05/19 18:34 98.4 F 73 16 132/63 05/05/19 17:30 75 16 126/56 05/05/19 17:00 75 17 135/59 05/05/19 16:30 79 18 133/61 05/05/19 16:00 78 17 141/58 05/05/19 15:30 79 16 139/80 05/05/19 14:30 80 15 136/60 05/05/19 13:02 98.6 F 81 18 150/77 Pulse Ox 05/06/19 11:29 95 05/06/19 08:35 05/06/19 04:48 98 05/05/19 21:04 95 05/05/19 18:34 93 L 05/05/19 17:30 95 05/05/19 17:00 97 05/05/19 16:30 97 05/05/19 16:00 97 05/05/19 15:30 98 05/05/19 14:30 97 05/05/19 13:02 100 Intake and Output 05/05/19 05/06/19 05/06/19 22:59 06:59 14:59 Intake Total 900 Balance 900 Intake: Intake, IV Titration 900 Amount Piperacillin-Tazobactam 3 100 .375 gm In Sodium Chloride 0.9% 100 ml @ 25 mls/hr IVPB Q8HR [facility] Rx# :[id number] Sodium Chloride 0.9% 1, 600 000 ml @ 100 mls/hr IV . Q10H ONE Rx#:[id number] metroNIDAZOLE-NS PMX 500 200 mg In Saline 1 100ml.bag @ 100 mls/hr IVPB Q6HR [facility] Rx#:[id number] Other: Voiding Method Toilet Toilet # Voids 1 3 Weight 52.163 kg Gen: This is a 78-year-old female. Patient is resting in bed. Patient appears to be in no acute distress. Family members at bedside. HEENT: Head is atraumatic, normocephalic. Pupils equal, round. Sclerae is anicteric. 2 NECK: Supple. No JVD. No lymphadenopathy. No thyromegaly. LUNGS: Clear to auscultation. No wheezes or rhonchi. No intercostal retractions. HEART: Regular rate and rhythm. No murmur. ABDOMEN: Soft. Bowel sounds are present. No masses. Generalized abdominal tenderness with increased tenderness to the left lower quadrant. EXTREMITIES: No pedal edema. No calf tenderness. NEUROLOGICAL: Patient is awake, alert and oriented x3. Cranial nerves 2 through 12 are grossly intact. Results CBC & Chem 7: 05/05/19 13:24 05/05/19 13:24 Labs: Abnormal Lab Results - Last 24 Hours (Table) 05/05/19 05/05/19 05/05/19 Range/Units 13:24 13:24 14:59 WBC 14.2 H (3.8-10.6) k/uL Neutrophils # 12.7 H (1.3-7.7) k/uL Lymphocytes # 0.6 L (1.0-4.8) k/uL Glucose 135 H (74-99) mg/dL Urine Ketones Trace H (Negative) Urine Blood Moderate H (Negative) Urine RBC 20 H (0-5) /hpf Thrombosis Risk Factor Assmnt - DVT/VTE Prophylaxis DVT/VTE Prophylaxis: Pharmacologic Prophylaxis ordered - Choose All That Apply Other Risk Factors: Yes Each Risk Factor Represents 3 Points: Age 75 years or older Thrombosis Risk Factor Assessment Total Risk Factor Score: 3 Thrombosis Risk Factor Assessment Level: Moderate Risk Assessment and Plan Plan: 1. Syncopal episode secondary to dehydration from acute colitis. Patient is currently nothing by mouth except for ice chips, IV fluids at 75 mL per hour. General surgery consult. Continue Flagyl and Zosyn. A repeat abdominal x-rays in the morning. 2. Acute colitis. Continue as in #1. 3. Concussion with scalp laceration. Repeat CAT scan will be ordered for Wednesday, check orthostatics tomorrow. 4. Hyperlipidemia continue statin. 5. Osteoarthritis, generalized. 6. GI prophylaxis. Protonix. 7. DVT prophylaxis. SCDs and RAJNI hose. Patient will be admitted to the hospital for a minimum of 2 night stay. Discharge plan: home Impression and plan of care have been directed as dictated by the signing physician. Zina Hudson nurse practitioner acting as scribe for signing physician.
[2019-05-06] MEDS: ATORVASTATIN 10 MG TAB PO SCH (20:10)
[2019-05-06] MEDS: MELATONIN 5 MG TABLET PO PRN (22:02)
[2019-05-07] MEDS: PIPERACILLIN-TAZOBACTAM 3.375 GM in SODIUM CHLORIDE 0.9% 100 ML IVPB SCH ×3 (00:31→17:26)
[2019-05-07] MEDS: metroNIDAZOLE-NS PMX 500 MG in SALINE 1 100ML.BAG IVPB SCH ×4 (05:36→23:34)
--- NOTE | 2019-05-07 07:18 | XR ---
EXAMINATION TYPE: XR abdomen 2V , DATE OF EXAM ORDERED: 05/07/2019 HISTORY: abd pain, constipation. COMPARISON: Previous study dated 05/21/2013. FINDINGS: The lung bases are clear. Within the abdomen, the gallbladder is been removed. The abdominal gas pattern is within normal limit s. There is no evidence of obstruction or free air. There is coarse calcifications within the pelvis which may relate to fibroid change. There are degenerative changes in the hips. IMPRESSION: NONACUTE ABDOMINAL PICTURE.
[2019-05-07] MEDS: PANTOPRAZOLE 40 MG/10 ML VIAL IVP SCH (08:05)
[2019-05-07] MEDS: SODIUM CHLORIDE 0.9% 1,000 ML IV SCH (08:06)
--- NOTE | 2019-05-07 08:30 | CT ---
EXAMINATION TYPE: CT brain wo con DATE OF EXAM: 05/07/2019 COMPARISON: Previous study dated 05/05/2019. HISTORY: F/U concussion, head injury CT DLP: 1054.2 mGycm Automated exposure control for dose reduction was used. FINDINGS: There are mild, generalized changes of sulcal prominence and ventriculomegaly, compatible with mild a trophy. There is diffuse white matter lucency compatible with chronic white matter ischemic change. T here is some physiologic calcification of the basal ganglia. There is no acute focal lesion, mass eff ect or midline shift identified. I do not see evidence of intracranial blood. There are metallic skin sutures present in the posterior parietal scalp. Visualized portions of the p aranasal sinuses and mastoids are clear. IMPRESSION: 1. NO ACUTE INTRACRANIAL ABNORMALITY. 2. MILD DEGENERATIVE CHANGE.
--- NOTE | 2019-05-07 11:00 | P.PN ---
Progress Note - Text Progress Note Date: 05/07/19 The patient feels slightly better. She is complaining of hunger. On exam her vital signs are stable. Her abdomen soft. There is mild left lower quadrant tenderness. There is no rebound or guarding. Diverticulitis/enteritis. This is improving. Patient will start on full liquid diet.
--- NOTE | 2019-05-07 14:07 | P.PN ---
Subjective Progress Note Date: 05/07/19 This is a 78-year-old female patient of Dr. Rouse with past medical history of hyperlipidemia, osteoarthritis. Patient complains of significant abdominal pain in the lower abdomen across the mid area that started on . As she was using a warm pack and was only taking sips of water not e ating any food. She states she lost her appetite. She thought she had some fever and chills. She is was walking to the kitchen and she felt terrible week and no dizziness all of a sudden she had a loss of consciousness and landed on the floor hitting her head. She is not sure how long she was on the floor or had loss of consciousness then she got up and went into the bedroom and slept. She will woke up and found blood on her pillow and realized that she had cut the back of her head. She called her grandson around noon and he brought her in the hospital. She states she had an episode about 4 years ago of the same type of symptoms. She denies having any palpitations. She did have some multiple stools on evening but were not watery. She denies any history of constipation. Patient states that she recently had a colonoscopy 6-[address] Pacheco. Patient came into the [facility] emergency center. CAT scan of the abdomen and pelvis correlate for enteritis colitis, possible peritonitis, diverticulosis. Chest x-ray showed no acute findings. CAT scan of the brain revealed no acute bleed. EKG was in normal sinus rhythm without ST-T wave changes. Chest x-rays in no acute findings. Patient had macie 2 placed and to the back of her skull laceration. Patient was admitted to the [facility] floor and consult with general surgery. 05/07: Brief repeat CAT scan of the brain showed no acute findings. Abdominal x- ray showed no acute findings. Dr. Sams advance her diet to full liquids that she did not tolerate and we will reverse back to clear liquids for now. She has been afebrile, blood pressure 112/53, heart rate 71, pulse ox 90% on ro om air, afebrile. Repeat blood work ordered for tomorrow. Review of Systems Constitutional: Reports fatigue, Reports poor appetite, Reports weakness, Denies chills, Denies fever Eyes: denies blurred vision Ears, nose, mouth and throat: Denies headache, Denies sore throat, Denies vertigo Cardiovascular: Reports syncope, Denies chest pain, Denies lightheadedness, Denies shortness of breath Respiratory: Denies cough, Denies cough with sputum, Denies dyspnea, Denies excessive sputum, Denies hemoptysis, Denies home oxygen, Denies respiratory infections Gastrointestinal: Reports abdominal pain, Reports loss of appetite, Denies cons tipation, Denies diarrhea, Denies nausea, Denies vomiting Genitourinary: Denies dysuria, Denies hematuria, Denies urgency, Denies urinary frequency Musculoskeletal: Denies frequent falls, Denies gait dysfunction, Denies muscle weakness, Denies myalgias Integumentary: Denies pruritus, Denies rash, Denies wounds Neurological: Denies change in mentation, Denies change in speech, Denies numbness, Denies weakness Psychiatric: Denies anxiety, Denies depression Endocrine: Denies fatigue, Denies weight change Objective - Vital Signs Vital signs: Vital Signs Temp 99 F 05/07/19 12:43 Pulse 71 05/07/19 12:43 Resp 16 05/07/19 04:42 BP 112/53 05/07/19 12:43 Pulse Ox 98 05/07/19 12:43 Intake & Output 05/06/19 05/07/19 05/07/19 18:59 06:59 18:59 Intake Total 0 1025 Balance 0 1025 Intake: Intake, IV Titration 1025 Amount Piperacillin-Tazobactam 3 100 .375 gm In Sodium Chloride 0.9% 100 ml @ 25 mls/hr IVPB Q8HR [facility] Rx# :[id number] Sodium Chloride 0.9% 1, 825 000 ml @ 75 mls/hr IV . [id number] [facility] Rx#:[id number] metroNIDAZOLE-NS PMX 500 100 mg In Saline 1 100ml.bag @ 100 mls/hr IVPB Q6HR [facility] Rx#:[id number] Oral 0 Other: Voiding Method Toilet Toilet Toilet # Voids 3 3 1 - Exam Gen: This is a 78-year-old female. Patient is resting in bed. Patient appears to be in no acute distress. Family members at bedside. HEENT: Head is atraumatic, normocephalic. Pupils equal, round. Sclerae is anicteric. 2 NECK: Supple. No JVD. No lymphadenopathy. No thyromegaly. LUNGS: Clear to auscultation. No wheezes or rhonchi. No intercostal retractions. HEART: Regular rate and rhythm. No murmur. ABDOMEN: Soft. Bowel sounds are present. No masses. tenderness bilateral lower quadrants. EXTREMITIES: No pedal edema. No calf tenderness. NEUROLOGICAL: Patient is awake, alert and oriented x3. Cranial nerves 2 through 12 are grossly intact. - Labs CBC & Chem 7: 05/05/19 13:24 05/05/19 13:24 Assessment and Plan Plan: 1. Syncopal episode secondary to dehydration from acute colitis. IV fluids at 75 mL per hour. General surgery consult. Continue Flagyl and Zosyn. A repeat abdominal x-rays as above. Change diet to clear liquids. 2. Acute colitis. Continue as in #1. 3. Concussion with scalp laceration. Repeat CAT scan will be ordered for Wednesday, check orthostatics tomorrow. 4. Hyperlipidemia continue statin. 5. Osteoarthritis, generalized. 6. GI prophylaxis. Protonix. 7. DVT prophylaxis. SCDs and RAJNI hose. Discharge plan: home Impression and plan of care have been directed as dictated by the signing physician. Zina Hudson nurse practitioner acting as scribe for signing physician.
[2019-05-07] MEDS: ATORVASTATIN 10 MG TAB PO SCH (20:14)
[2019-05-08] MEDS: PIPERACILLIN-TAZOBACTAM 3.375 GM in SODIUM CHLORIDE 0.9% 100 ML IVPB SCH ×4 (00:27→23:52)
[2019-05-08] MEDS: metroNIDAZOLE-NS PMX 500 MG in SALINE 1 100ML.BAG IVPB SCH ×4 (05:10→23:50)
[2019-05-08] MEDS: SODIUM CHLORIDE 0.9% 1,000 ML IV SCH ×2 (05:11→17:34)
[2019-05-08 08:17] LABS: HCT 38.2 % (34.0-46.0); HGB 12.5 gm/dL (11.4-16.0); MCH 30.6 pg (25.0-35.0); MCHC 32.8 g/dL (31.0-37.0); MCV 93.4 fL (80.0-100.0); Mean Platelet Volume 7.4; Platelet Count 335 k/uL (150-450); RDW 13.1 % (11.5-15.5); WBC 5.6 k/uL (3.8-10.6)
[2019-05-08 08:40] LABS: ALT 15 U/L (4-34); AST 31 U/L (14-36); African American GFR (CKD) >90 (>60 ml/min/1.73 sqM); Albumin 3.1 g/dL (3.5-5.0); Alkaline Phosphatase 65 U/L (38-126); Anion Gap 9 mmol/L; Blood Urea Nitrogen 5 mg/dL (7-17); Calcium 7.9 mg/dL (8.4-10.2); Carbon Dioxide 19 mmol/L (22-30); Chloride 108 mmol/L (98-107); Glucose 134 mg/dL (74-99); Non-African American GFR(CKD) >90 (>60 ml/min/1.73 sqM); Potassium 3.4 mmol/L (3.5-5.1); Sodium 136 mmol/L (137-145); Total Bilirubin 0.7 mg/dL (0.2-1.3); Total Protein 6.1 g/dL (6.3-8.2)
[2019-05-08] MEDS: PANTOPRAZOLE 40 MG/10 ML VIAL IVP SCH (09:03)
[2019-05-08] MEDS ORDERED: POTASSIUM CHLORIDE 20 MEQ in WATER FOR INJECTION 1 100ML.BAG IVPB STA (10:01)
--- NOTE | 2019-05-08 12:09 | P.PN ---
Subjective Progress Note Date: 05/08/19 CHIEF COMPLAINT: Abdominal pain HISTORY OF PRESENT ILLNESS: Patient examined this morning at the bedside. She reports her abdominal pain has resolved. However, she reports some loose stools this morning. She reports nausea this morning after eating full liquid tray. She is requesting broth for lunch. PHYSICAL EXAM: VITAL SIGNS: Reviewed. GENERAL: Well-developed in no acute distress. HEENT: No sclera icterus. Extraocular movements grossly intact. Moist buccal mucosa. Head is atraumatic, normocephalic. ABDOMEN: Soft. Nondistended. Nontender. NEUROLOGIC: Alert and oriented. Cranial nerves II through XII grossly intact. ASSESSMENT: 1. Abdominal pain, possible diverticulitis/enteritis PLAN: CDiff has been ordered per internal medicine. Patient requesting broth for lunch due to nausea. Continue antiemetics and antibiotics. If patient tolerates, may advance diet as tolerated. No surgical intervention recommended. Nurse practitioner note has been reviewed by physician. Signing provider agrees with the documented findings, assessment, and plan of care. Objective - Vital Signs Vital signs: Vital Signs Temp 97.1 F L 05/08/19 05:00 Pulse 67 05/08/19 05:00 Resp 18 05/08/19 05:00 BP 127/59 05/08/19 05:00 Pulse Ox 96 05/08/19 05:00 Intake & Output 05/07/19 05/08/19 05/08/19 18:59 06:59 18:59 Intake Total 700 600 Balance 700 600 Intake: Intake, IV Titration 700 600 Amount Piperacillin-Tazobactam 3 100 .375 gm In Sodium Chloride 0.9% 100 ml @ 25 mls/hr IVPB Q8HR [facility] Rx# :[id number] Sodium Chloride 0.9% 1, 600 600 000 ml @ 75 mls/hr IV . [id number] [facility] Rx#:[id number] Other: Voiding Method Toilet Toilet # Voids 1 1 - Labs CBC & Chem 7: 05/08/19 08:03 05/08/19 08:03 Labs: Abnormal Lab Results - Last 24 Hours (Table) 05/08/19 Range/Units 08:03 Sodium 136 L (137-145) mmol/L Potassium 3.4 L (3.5-5.1) mmol/L Chloride 108 H (98-107) mmol/L Carbon Dioxide 19 L (22-30) mmol/L BUN 5 L (7-17) mg/dL Creatinine 0.46 L (0.52-1.04) mg/dL Glucose 134 H (74-99) mg/dL Calcium 7.9 L (8.4-10.2) mg/dL Total Protein 6.1 L (6.3-8.2) g/dL Albumin 3.1 L (3.5-5.0) g/dL
[2019-05-08] MEDS: ONDANSETRON ODT 4 MG TAB PO SCH ×3 (13:58→23:50)
--- NOTE | 2019-05-08 14:16 | P.PN ---
Subjective Progress Note Date: 05/08/19 This is a 78-year-old female patient of Dr. Rouse with past medical history of hyperlipidemia, osteoarthritis. Patient complains of significant abdominal pain in the lower abdomen across the mid area that started on . As she was using a warm pack and was only taking sips of water not e ating any food. She states she lost her appetite. She thought she had some fever and chills. She is was walking to the kitchen and she felt terrible week and no dizziness all of a sudden she had a loss of consciousness and landed on the floor hitting her head. She is not sure how long she was on the floor or had loss of consciousness then she got up and went into the bedroom and slept. She will woke up and found blood on her pillow and realized that she had cut the back of her head. She called her grandson around noon and he brought her in the hospital. She states she had an episode about 4 years ago of the same type of symptoms. She denies having any palpitations. She did have some multiple stools on evening but were not watery. She denies any history of constipation. Patient states that she recently had a colonoscopy 6-[address] Pacheco. Patient came into the [facility] emergency center. CAT scan of the abdomen and pelvis correlate for enteritis colitis, possible peritonitis, diverticulosis. Chest x-ray showed no acute findings. CAT scan of the brain revealed no acute bleed. EKG was in normal sinus rhythm without ST-T wave changes. Chest x-rays in no acute findings. Patient had macie 2 placed and to the back of her skull laceration. Patient was admitted to the [facility] floor and consult with general surgery. 05/07: Brief repeat CAT scan of the brain showed no acute findings. Abdominal x- ray showed no acute findings. Dr. Sams advance her diet to full liquids that she did not tolerate and we will reverse back to clear liquids for now. She has been afebrile, blood pressure 112/53, heart rate 71, pulse ox 90% on ro om air, afebrile. Repeat blood work ordered for tomorrow. 05/08: Patient has been afebrile, heart rate 67, blood pressure 127/59, pulse ox 96% on room air. Repeat blood work reveals a normal CBC. Sodium 136, potassium 3.4 and will be replaced, chloride 108, CO2 19, BUN 5 and creatinine 0.46. Marilyn er function tests within normal limits. Patient states that she has had 2 watery stools and C. difficile toxin will be checked. She is eating 25-50% of her meals. She states she is not hungry and she becomes nauseated with this time to eat. Her abdominal pain is improving. She has some minimal tenderness We will plan to advance her diet to see if she has more options to eat and Zofran ODT scheduled. Patient is continued on Flagyl and Zosyn. Review of Systems Constitutional: Reports fatigue, Reports poor appetite, Reports weakness, Denies chills, Denies fever Ears, nose, mouth and throat: Denies headache, Denies sore throat, Denies vertigo Cardiovascular: Reports syncope, Denies chest pain, Denies lightheadedness, Denies shortness of breath Respiratory: Denies cough, Denies cough with sputum, Denies dyspnea, Denies excessive sputum, Denies hemoptysis, Denies home oxygen, Denies respiratory infections Gastrointestinal: Reports abdominal pain, Reports loss of appetite, Denies constipation, Denies diarrhea, Denies nausea, Denies vomiting Genitourinary: Denies dysuria, Denies hematuria, Denies urgency, Denies urinary frequency Musculoskeletal: Denies frequent falls, Denies gait dysfunction, Denies muscle weakness, Denies myalgias Integumentary: Denies pruritus, Denies rash, Denies wounds Neurological: Denies change in mentation, Denies change in speech, Denies numbness, Denies weakness Psychiatric: Denies anxiety, Denies depression Endocrine: Denies fatigue, Denies weight change Objective - Vital Signs Vital signs: Vital Signs Temp 97.1 F L 05/08/19 05:00 Pulse 67 05/08/19 05:00 Resp 18 05/08/19 05:00 BP 127/59 05/08/19 05:00 Pulse Ox 96 05/08/19 05:00 Intake & Output 05/07/19 05/08/19 05/08/19 18:59 06:59 18:59 Intake Total 700 600 Balance 700 600 Intake: Intake, IV Titration 700 600 Amount Piperacillin-Tazobactam 3 100 .375 gm In Sodium Chloride 0.9% 100 ml @ 25 mls/hr IVPB Q8HR [facility] Rx# :[id number] Sodium Chloride 0.9% 1, 600 600 000 ml @ 75 mls/hr IV . [id number] [facility] Rx#:[id number] Other: Voiding Method Toilet Toilet # Voids 1 1 - Exam Gen: This is a 78-year-old female. Patient is resting in bed. Patient appears to be in no acute distress. Family members at bedside. HEENT: Head is atraumatic, normocephalic. Pupils equal, round. Sclerae is anicteric. 2 NECK: Supple. No JVD. No lymphadenopathy. No thyromegaly. LUNGS: Clear to auscultation. No wheezes or rhonchi. No intercostal retractions. HEART: Regular rate and rhythm. No murmur. ABDOMEN: Soft. Bowel sounds are present. No masses. Minimal tenderness bilateral lower quadrants. EXTREMITIES: No pedal edema. No calf tenderness. NEUROLOGICAL: Patient is awake, alert and oriented x3. Cranial nerves 2 through 12 are grossly intact. - Labs CBC & Chem 7: 05/08/19 08:03 05/08/19 08:03 Labs: Abnormal Lab Results - Last 24 Hours (Table) 05/08/19 Range/Units 08:03 Sodium 136 L (137-145) mmol/L Potassium 3.4 L (3.5-5.1) mmol/L Chloride 108 H (98-107) mmol/L Carbon Dioxide 19 L (22-30) mmol/L BUN 5 L (7-17) mg/dL Creatinine 0.46 L (0.52-1.04) mg/dL Glucose 134 H (74-99) mg/dL Calcium 7.9 L (8.4-10.2) mg/dL Total Protein 6.1 L (6.3-8.2) g/dL Albumin 3.1 L (3.5-5.0) g/dL Assessment and Plan Plan: 1. Syncopal episode secondary to dehydration from acute colitis. IV fluids at 75 mL per hour. General surgery consult. Continue Flagyl and Zosyn. A repeat abdominal x-rays as above. Change diet to soft diet in the morning. Zofran ODT scheduled. 2. Acute colitis. Continue as in #1. 3. Concussion with scalp laceration. Repeat CAT scan negative for bleed. 4. Hyperlipidemia continue statin. 5. Osteoarthritis, generalized. 6. GI prophylaxis. Protonix. 7. DVT prophylaxis. SCDs and RAJNI gilbert. Discharge plan: home Impression and plan of care have been directed as dictated by the signing physician. Zina Husdon nurse practitioner acting as scribe for signing physician.
[2019-05-08] MEDS: ATORVASTATIN 10 MG TAB PO SCH (22:13)
[2019-05-09] MEDS: SODIUM CHLORIDE 0.9% 1,000 ML IV SCH (05:37)
[2019-05-09] MEDS: metroNIDAZOLE-NS PMX 500 MG in SALINE 1 100ML.BAG IVPB SCH ×3 (05:38→21:42)
[2019-05-09] MEDS: PIPERACILLIN-TAZOBACTAM 3.375 GM in SODIUM CHLORIDE 0.9% 100 ML IVPB SCH ×3 (07:45→23:56)
[2019-05-09] MEDS: PANTOPRAZOLE 40 MG TABLET PO SCH (07:45)
[2019-05-09] MEDS: ONDANSETRON ODT 4 MG TAB PO SCH ×3 (07:45→23:31)
[2019-05-09 10:46] LABS: African American GFR (CKD) >90 (>60 ml/min/1.73 sqM); Anion Gap 8 mmol/L; Blood Urea Nitrogen 5 mg/dL (7-17); Calcium 8.9 mg/dL (8.4-10.2); Carbon Dioxide 27 mmol/L (22-30); Chloride 106 mmol/L (98-107); Glucose 113 mg/dL (74-99); Magnesium 1.7 mg/dL (1.6-2.3); Non-African American GFR(CKD) 88 (>60 ml/min/1.73 sqM); Potassium 3.3 mmol/L (3.5-5.1); Sodium 141 mmol/L (137-145)
[2019-05-09] MEDS ORDERED: POTASSIUM CHLORIDE ER 20 MEQ TAB.ER PO STA (11:02)
--- NOTE | 2019-05-09 11:08 | P.PN ---
Subjective Progress Note Date: 05/09/19 CHIEF COMPLAINT: Abdominal pain HISTORY OF PRESENT ILLNESS: Patient examined this morning at the bedside. Patient denies abdominal pain this morning. She continues to have diarrhea today. She reports 5-6 episodes of diarrhea this morning. She feels like she is getting dehydrated and weak. CDiff has not been collected yet. PHYSICAL EXAM: VITAL SIGNS: Reviewed. GENERAL: Well-developed in no acute distress. HEENT: No sclera icterus. Extraocular movements grossly intact. Moist buccal mucosa. Head is atraumatic, normocephalic. ABDOMEN: Soft. Nondistended. Nontender. NEUROLOGIC: Alert and oriented. Cranial nerves II through XII grossly intact. ASSESSMENT: 1. Abdominal pain, possible diverticulitis/enteritis PLAN: Continue diet as tolerated Continue antiemetics Continue antibiotics Collect CDiff sample Check BMP and magnesium level. Maintain potassium greater than 4.0 and Magnesium above 2.0. 1L LR bolus. Continue maintenance IV fluids Nurse practitioner note has been reviewed by physician. Signing provider agrees with the documented findings, assessment, and plan of care. Objective - Vital Signs Vital signs: Vital Signs Temp 98.9 F 05/09/19 04:47 Pulse 67 05/09/19 08:00 Resp 18 05/09/19 08:00 BP 139/69 05/09/19 04:47 Pulse Ox 98 05/09/19 04:47 Intake & Output 05/08/19 05/09/19 05/09/19 18:59 06:59 18:59 Intake Total 200 1405 Balance 200 1405 Intake: Intake, IV Titration 200 925 Amount Piperacillin-Tazobactam 3 100 200 .375 gm In Sodium Chloride 0.9% 100 ml @ 25 mls/hr IVPB Q8HR [facility] Rx# :[id number] Potassium Chloride 20 meq 100 In Water For Injection 1 100ml.bag @ 50 mls/hr [facility]PB [facility] Rx#: [id number] Sodium Chloride 0.9% 1, 725 000 ml @ 75 mls/hr IV . [id number] [facility] Rx#:[id number] Oral 480 Other: Voiding Method Toilet Toilet Toilet # Voids 1 2 # Bowel Movements 3 - Labs CBC & Chem 7: 05/08/19 08:03 05/09/19 10:16 Labs: Abnormal Lab Results - Last 24 Hours (Table) 05/09/19 Range/Units 10:16 Potassium 3.3 L (3.5-5.1) mmol/L BUN 5 L (7-17) mg/dL Glucose 113 H (74-99) mg/dL
[2019-05-09] MEDS: MAGNESIUM SULFATE-D5W PMX 1 GM in DEXTROSE/WATER 1 100ML.BAG IVPB SCH ×2 (12:28→13:47)
[2019-05-09] MEDS: LACTATED RINGERS 1,000 ML IV SCH ×3 (12:44→12:51)
--- NOTE | 2019-05-09 14:53 | P.PN ---
Subjective Progress Note Date: 05/09/19 This is a 78-year-old female patient of Dr. Rouse with past medical history of hyperlipidemia, osteoarthritis. Patient complains of significant abdominal pain in the lower abdomen across the mid area that started on . As she was using a warm pack and was only taking sips of water not e ating any food. She states she lost her appetite. She thought she had some fever and chills. She is was walking to the kitchen and she felt terrible week and no dizziness all of a sudden she had a loss of consciousness and landed on the floor hitting her head. She is not sure how long she was on the floor or had loss of consciousness then she got up and went into the bedroom and slept. She will woke up and found blood on her pillow and realized that she had cut the back of her head. She called her grandson around noon and he brought her in the hospital. She states she had an episode about 4 years ago of the same type of symptoms. She denies having any palpitations. She did have some multiple stools on evening but were not watery. She denies any history of constipation. Patient states that she recently had a colonoscopy 6-[address] Pacheco. Patient came into the [facility] emergency center. CAT scan of the abdomen and pelvis correlate for enteritis colitis, possible peritonitis, diverticulosis. Chest x-ray showed no acute findings. CAT scan of the brain revealed no acute bleed. EKG was in normal sinus rhythm without ST-T wave changes. Chest x-rays in no acute findings. Patient had macie 2 placed and to the back of her skull laceration. Patient was admitted to the [facility] floor and consult with general surgery. 05/07: Brief repeat CAT scan of the brain showed no acute findings. Abdominal x- ray showed no acute findings. Dr. Sams advance her diet to full liquids that she did not tolerate and we will reverse back to clear liquids for now. She has been afebrile, blood pressure 112/53, heart rate 71, pulse ox 90% on ro om air, afebrile. Repeat blood work ordered for tomorrow. 05/08: Patient has been afebrile, heart rate 67, blood pressure 127/59, pulse ox 96% on room air. Repeat blood work reveals a normal CBC. Sodium 136, potassium 3.4 and will be replaced, chloride 108, CO2 19, BUN 5 and creatinine 0.46. Marilyn er function tests within normal limits. Patient states that she has had 2 watery stools and C. difficile toxin will be checked. She is eating 25-50% of her meals. She states she is not hungry and she becomes nauseated with this time to eat. Her abdominal pain is improving. She has some minimal tenderness We will plan to advance her diet to see if she has more options to eat and Zofran ODT scheduled. Patient is continued on Flagyl and Zosyn. 05/09: Patient states that her abdominal pain is significantly better. Nausea is much improved with oral Zofran. She does complain of 5 episodes of diarrhea not quite watery. Patient states she feels exhausted from the diarrhea. C. difficile toxin ordered. Repeat blood work reveals potassium of 3.3 which will be replaced, creatinine 0.62. Continue Flagyl and Zosyn. Patient started on a chopped diet this morning. IV fluids will be discontinued. She is tolerating well. Anticipate discharge home tomorrow. Review of Systems Constitutional: Reports fatigue, Reports poor appetite, Reports weakness, Denies chills, Denies fever Ears, nose, mouth and throat: Denies headache, Denies sore throat, Denies vertigo Cardiovascular: Reports syncope, Denies chest pain, Denies lightheadedness, Denies shortness of breath Respiratory: Denies cough, Denies cough with sputum, Denies dyspnea, Denies excessive sputum, Denies hemoptysis, Denies home oxygen, Denies respiratory infections Gastrointestinal: Reports abdominal pain improved, Reports loss of appetite, Denies constipation, Denies diarrhea, Denies nausea, Denies vomiting Genitourinary: Denies dysuria, Denies hematuria, Denies urgency, Denies urinary frequency Musculoskeletal: Denies frequent falls, Denies gait dysfunction, Denies muscle weakness, Denies myalgias Integumentary: Denies pruritus, Denies rash, Denies wounds Neurological: Denies change in mentation, Denies change in speech, Denies numbness, Denies weakness Psychiatric: Denies anxiety, Denies depression Endocrine: Denies fatigue, Denies weight change Objective - Vital Signs Vital signs: Vital Signs Temp 98.9 F 05/09/19 04:47 Pulse 67 05/09/19 08:00 Resp 18 05/09/19 08:00 BP 139/69 05/09/19 04:47 Pulse Ox 98 05/09/19 04:47 Intake & Output 05/08/19 05/09/19 05/09/19 18:59 06:59 18:59 Intake Total 200 1405 Balance 200 1405 Intake: Intake, IV Titration 200 925 Amount Piperacillin-Tazobactam 3 100 200 .375 gm In Sodium Chloride 0.9% 100 ml @ 25 mls/hr IVPB Q8HR [facility] Rx# :[id number] Potassium Chloride 20 meq 100 In Water For Injection 1 100ml.bag @ 50 mls/hr [facility] Rx#: [id number] Sodium Chloride 0.9% 1, 725 000 ml @ 75 mls/hr IV . [id number] [facility] Rx#:[id number] Oral 480 Other: Voiding Method Toilet Toilet Toilet # Voids 1 2 # Bowel Movements 3 - Exam Gen: This is a 78-year-old female. Patient is resting in bed. Patient appears to be in no acute distress. HEENT: Head is atraumatic, normocephalic. Pupils equal, round. Sclerae is anicteric. 2 NECK: Supple. No JVD. No lymphadenopathy. No thyromegaly. LUNGS: Clear to auscultation. No wheezes or rhonchi. No intercostal retractions. HEART: Regular rate and rhythm. No murmur. ABDOMEN: Soft. Bowel sounds are present. No masses. Minimal tenderness bilateral lower quadrants. EXTREMITIES: No pedal edema. No calf tenderness. NEUROLOGICAL: Patient is awake, alert and oriented x3. Cranial nerves 2 through 12 are grossly intact. - Labs CBC & Chem 7: 05/08/19 08:03 05/09/19 10:16 Labs: Abnormal Lab Results - Last 24 Hours (Table) 05/09/19 Range/Units 10:16 Potassium 3.3 L (3.5-5.1) mmol/L BUN 5 L (7-17) mg/dL Glucose 113 H (74-99) mg/dL Assessment and Plan Plan: 1. Syncopal episode secondary to dehydration from acute colitis. IV fluids discontinued. General surgery consult appreciated. Continue Flagyl and Zosyn. A repeat abdominal x-rays as above. Continue soft diet, Zofran ODT scheduled. 2. Acute colitis. Continue as in #1. 3. Concussion with scalp laceration. Repeat CAT scan negative for bleed. 4. Hyperlipidemia continue statin. 5. Osteoarthritis, generalized. 6. GI prophylaxis. Protonix. 7. DVT prophylaxis. SCDs and RAJNI hose. 8. Diarrhea. Check for C. difficile toxin. 9. Hypokalemia secondary to diarrhea. Status post replacement. Discharge plan: home on Wednesday Impression and plan of care have been directed as dictated by the signing physician. Zina Hudson nurse practitioner acting as scribe for signing physician.
[2019-05-09] MEDS: ATORVASTATIN 10 MG TAB PO SCH (19:59)
[2019-05-10] MEDS: metroNIDAZOLE-NS PMX 500 MG in SALINE 1 100ML.BAG IVPB SCH ×3 (01:30→11:53)
[2019-05-10 07:48] LABS: HGB 12.7 gm/dL (11.4-16.0); MCH 31.6 pg (25.0-35.0); MCHC 34.4 g/dL (31.0-37.0); MCV 91.9 fL (80.0-100.0); Mean Platelet Volume 7.1; Platelet Count 382 k/uL (150-450); RBC 4.02 m/uL (3.80-5.40); RDW 13.1 % (11.5-15.5); WBC 5.7 k/uL (3.8-10.6)
[2019-05-10 07:57] LABS: African American GFR (CKD) >90 (>60 ml/min/1.73 sqM); Anion Gap 8 mmol/L; Blood Urea Nitrogen 4 mg/dL (7-17); Carbon Dioxide 23 mmol/L (22-30); Chloride 107 mmol/L (98-107); Glucose 100 mg/dL (74-99); Non-African American GFR(CKD) >90 (>60 ml/min/1.73 sqM); Potassium 3.3 mmol/L (3.5-5.1); Sodium 138 mmol/L (137-145)
[2019-05-10 08:17] VITALS: RESP 18
[2019-05-10] MEDS: ONDANSETRON ODT 4 MG TAB PO SCH (08:20)
[2019-05-10] MEDS: PIPERACILLIN-TAZOBACTAM 3.375 GM in SODIUM CHLORIDE 0.9% 100 ML IVPB SCH (08:26)
[2019-05-10] MEDS: PANTOPRAZOLE 40 MG TABLET PO SCH (08:26)
[2019-05-10] MEDS ORDERED: POTASSIUM CHLORIDE ER 20 MEQ TAB.ER PO STA (09:46)
[2019-05-10 11:54] VITALS: BP 168/79; PULSE 78; TEMP 97.9
--- NOTE | 2019-05-11 09:21 | P.DS ---
Providers Date of admission: 05/05/19 16:32 Expected date of discharge: 05/10/19 Attending physician: Robyn Burger Consults: 05/05/19 16:31 Consult Physician Urgent Consulting Provider: Dante Sams Consult Reason/Comments: Abdominal pain, enteritis, possible peritonitis Do you want consulting provider notified?: Yes Primary care physician: [facility] Course: This is a 78-year-old female patient of Dr. Rouse with past medical history of hyperlipidemia, osteoarthritis. Patient complains of significant abdominal pain in the lower abdomen across the mid area that started on . As she was using a warm pack and was only taking sips of water not eating any food. She states she lost her appetite. She thought she had some fever and chills. She is was walking to the kitchen and she felt terrible week and no dizziness all of a sudden she had a loss of consciousness and landed on the floor hitting her head. She is not sure how long she was on the floor or had loss of consciousness then she got up and went into the bedroom and slept. She will woke up and found blood on her pillow and realized that she had cut the back of her head. She called her grandson around noon and he brought her in the hospital. She states she had an episode about 4 years ago of the same type of symptoms. She denies having any palpitations. She did have some multiple stools on evening but were not watery. She denies any history of constipation. Patient states that she recently had a colonoscopy 6-[address] Pacheco. Patient came into the [facility] emergency center. CAT scan of the abdomen and pelvis correlate for enteritis colitis, possible peritonitis, diverticulosis. Chest x-ray showed no acute findings. CAT scan of the brain revealed no acute bleed. EKG was in normal sinus rhythm without ST-T wave changes. Chest x-rays in no acute findings. Patient had anisa 2 placed and to the back of her skull laceration. Patient was admitted to the [facility] and consult with general surgery. 05/07: Brief repeat CAT scan of the brain showed no acute findings. Abdominal x- ray showed no acute findings. Dr. Sams advance her diet to full liquids that she did not tolerate and we will reverse back to clear liquids for now. She has been afebrile, blood pressure 112/53, heart rate 71, pulse ox 90% on ro om air, afebrile. Repeat blood work ordered for tomorrow. 05/08: Patient has been afebrile, heart rate 67, blood pressure 127/59, pulse ox 96% on room air. Repeat blood work reveals a normal CBC. Sodium 136, potassium 3.4 and will be replaced, chloride 108, CO2 19, BUN 5 and creatinine 0.46. Liver function tests within normal limits. Patient states that she has had 2 watery stools and C. difficile toxin will be checked. She is eating 25-50% of her meals. She states she is not hungry and she becomes nauseated with this time to eat. Her abdominal pain is improving. She has some minimal tenderness We will plan to advance her diet to see if she has more options to eat and Zofran ODT scheduled. Patient is continued on Flagyl and Zosyn. 05/09: Patient states that her abdominal pain is significantly better. Nausea is much improved with oral Zofran. She does complain of 5 episodes of diarrhea not quite watery. Patient states she feels exhausted from the diarrhea. C. difficile toxin ordered. Repeat blood work reveals potassium of 3.3 which will be replaced, creatinine 0.62. Continue Flagyl and Zosyn. Patient started on a chopped diet this morning. IV fluids will be discontinued. She is tolerating well. Anticipate discharge home tomorrow. 05/10: Patient remains afebrile, heart rate 77, blood pressure 143/66, pulse ox 90% on room air. CBC is unremarkable, potassium 3.3, BUN 4 and creatinine 0.54, blood sugar 100, calcium 8.0. C. difficile toxin was negative. Patient's nausea is resolved, she is tolerating diet, diarrhea seems to be improving at this point. Patient is anxious to be discharged home. Patient will be discharged home today in stable condition. Discharge diagnoses: 1. Syncopal episode secondary to dehydration from acute colitis. 2. Acute colitis. 3. Concussion with scalp laceration. 4. Hyperlipidemia 5. Osteoarthritis 6. Diarrhea. 7. Hypokalemia secondary to diarrhea Discharge plan: home Impression and plan of care have been directed as dictated by the signing physician. Zina Hudson nurse practitioner acting as scribe for signing physician. Patient Condition at Discharge: Good Plan - Discharge Summary Discharge Rx Participant: Yes New Discharge Prescriptions: New Ciprofloxacin HCl [Cipro] 500 mg PO BID 10 Days #5 tab metroNIDAZOLE [Flagyl] 500 mg PO Q8HR #15 tab Ondansetron Odt [Zofran Odt] 4 mg PO Q8HR PRN #20 tab PRN Reason: Nausea Continue Rosuvastatin Calcium 5 mg PO HS Alendronate Sodium [Fosamax] 70 mg PO TU Discharge Medication List Rosuvastatin Calcium 5 mg PO HS 03/08/19 [History] Alendronate Sodium [Fosamax] 70 mg PO TU 05/05/19 [History] Ciprofloxacin HCl [Cipro] 500 mg PO BID 10 Days #5 tab 05/10/19 [Rx] Ondansetron Odt [Zofran Odt] 4 mg PO Q8HR PRN #20 tab 05/10/19 [Rx] metroNIDAZOLE [Flagyl] 500 mg PO Q8HR #15 tab 05/10/19 [Rx] Follow up Appointment(s)/Referral(s): Osvaldo Rouse MD [Primary Care Provider] - 1 Week (Dr. Rouse's office will call patient with an appointment date and time. ) Dante Sams MD [STAFF PHYSICIAN] - 05/18/19 2:50 pm Patient Instructions/Handouts: Ciprofloxacin (By mouth), Metronidazole (By mouth), Ondansetron (By mouth), Acute Abdominal Pain (DC), Enteritis (DC) Activity/Diet/Wound Care/Special Instructions: Anisa out in May 15 Discharge Disposition: HOME SELF-CARE
== END 2019-05-10 14:40 | disposition home or self-care (01) | DRG 392 ==
LOC: EC 12:59 → 5NMEDONC 16:32
PROVIDERS: ADMIT Internal Medicine; ATTEND Internal Medicine
PROC: 0HQ0XZZ Repair Scalp Skin, External Approach (ICD-10-PCS; principal; 2019-05-05)
DX: K52.9 Noninfective gastroenteritis and colitis, unspecified (principal); S06.0X9A Concussion with loss of consciousness of unspecified duration, initial encounter; E78.5 Hyperlipidemia, unspecified; E86.0 Dehydration; E87.6 Hypokalemia; M19.90 Unspecified osteoarthritis, unspecified site; S01.01XA Laceration without foreign body of scalp, initial encounter; K57.90 Diverticulosis of intestine, part unspecified, without perforation or abscess without bleeding; R55 Syncope and collapse; Z87.891 Personal history of nicotine dependence; Z79.83 Long term (current) use of bisphosphonates; Z79.899 Other long term (current) drug therapy; Z88.5 Allergy status to narcotic agent; Z90.49 Acquired absence of other specified parts of digestive tract; Z80.8 Family history of malignant neoplasm of other organs or systems; W18.39XA Other fall on same level, initial encounter; Y92.000 Kitchen of unspecified non-institutional (private) residence as the place of occurrence of the external cause
CPT/HCPCS: 12001; 36415; 70450; 71046; 72125; 74019; 74177; 80048; 80053; 81001; 83735; 84484; 85025; 85027; 85610; 85730; 87324; 90471; 90715; 93005; 96361; 96365; 96375; 99285

== ENCOUNTER → 2019-10-13 | Outpatient (CLI) | payer MEDICARE, BC ==
[~2019-10-13] MED LIST changes: -LACTATED RINGERS 1,000 ML IV SCH; -LIDOCAINE 1% 20 ML VIAL (10MG/ML) FOR IV START INTRADERMA PRN; +REGADENOSON 0.4 MG/5 ML SYRINGE IV ONE
--- NOTE | 2019-10-13 13:23 | EST ---
EXERCISE STRESS AGE: 79 SEX: F HT: 61" WT: 115 lbs. PROTOCOL: Lexiscan Cardiolite STAGE: DURATION OF EXERCISE: HEART RATE REST: 62 BLOOD PRESSURE REST: 132/63 MAXIMUM HEART RATE ACHIEVED: 89 MAXIMUM BLOOD PRESSURE: 143/47 85% MPHR: 122 100% MPHR: 143 METS: INDICATIONS: Chest pain CLINICAL INFORMATION: Baseline rhythm is a sinus mechanism, rate of 62, normal axis and intervals. Normal electrocardiogram. Baseline blood pressure 132/63 mmHg. Patient received injection of Lexiscan. Electrocardiograph monitoring revealed no evidence of diagnostic ischemic ST deviation. Rare PACs were noted. Cardiolite was injected per protocol. CONCLUSION: 1. Nondiagnostic electrocardiograph stress testing. 2. Nuclear images will be reported separately. MMODL / IJN: [id number] /
--- NOTE | 2019-10-13 18:04 | NM ---
EXAMINATION TYPE: NM stress lexiscan cardiolite DATE OF EXAM: 10/13/2019 COMPARISON: NONE HISTORY: Chest pain TECHNIQUE: After the intravenous administration of 9.58 mCi Tc 99m Sestamibi - Cardiolite resting SP ECT images acquired 75 minutes post injection. The patient received 0.4mg Lexiscan, 24.8 mCi Tc 99m Sestamibi - Stress images obtained [address] injection FINDINGS: Review of stress and rest SPECT images demonstrates no distinct perfusion abnormality. Gated analysi s shows normal wall motion with an estimated left ventricular ejection fraction of 69 %. TID 0.86 IMPRESSION: No scintigraphic evidence for reversible ischemia.
== END | disposition home or self-care (01) ==
LOC: RADNMMAIN 08:39
PROVIDERS: ATTEND Internal Medicine Geriatric Medicine
DX: R07.9 Chest pain, unspecified (principal)
CPT/HCPCS: 93017; 78452; A9500; J2785

== ENCOUNTER → 2020-02-14 | Outpatient (CLI) | payer MEDICARE, BC ==
--- NOTE | 2020-02-16 09:22 | MM ---
Reason for exam: screening (asymptomatic). Last mammogram was performed 1 year and 1 month ago. History: Patient is postmenopausal and history of other cancer. Family history of breast cancer in paternal aunt. Cancelled Right Mammotome of the right breast, January 27, 2006. Cancelled Procedure of the right breast, January 27, 2006. Benign core biopsy of both breasts, 2005. Took estrogen for 9 years beginning at age 53. Took progesterone for 9 years beginning at age 53. Physical Findings: A clinical breast exam by your physician is recommended on an annual basis and results should be correlated with mammographic findings. MG 3D Screening Mammo W/Cad Bilateral CC and MLO view(s) were taken. Prior study comparison: January 23, 2019, bilateral MG 3d screening mammo w/cad. January 11, 2018, bilateral MG 3d screening mammo w/cad. The breast tissue is heterogeneously dense. This may lower the sensitivity of mammography. Finding: There are stable coarse heterogeneous, diffuse/scattered, grouped calcifications in both breasts. Previous mammotome biopsy in the right breast. No significant changes in finding since January 23, 2019 and January 11, 2018. ASSESSMENT: Benign, BI-RAD 2 RECOMMENDATION: Routine screening mammogram of both breasts in 1 year.
== END | disposition home or self-care (01) ==
LOC: RADMAMWWP 10:56
PROVIDERS: ATTEND Internal Medicine Geriatric Medicine
DX: Z12.31 Encounter for screening mammogram for malignant neoplasm of breast (principal)
CPT/HCPCS: 77063; 77067

== ENCOUNTER → 2020-08-19 | Outpatient (CLI) | payer MEDICARE, BC ==
--- NOTE | 2020-08-20 06:23 | CT ---
EXAMINATION TYPE: CT brain wo con DATE OF EXAM: 08/19/2020 HISTORY: Dizziness and giddiness. CT DLP: 1064.6 mGycm. Automated Exposure Control for Dose Reduction was Utilized. TECHNIQUE: CT scan of the head is performed without contrast. COMPARISON: CT brain May 07, 2019. FINDINGS: There is no acute intracranial hemorrhage or midline shift identified. There is mild diff use ventricular and sulcal prominence consistent with diffuse age-related cerebral atrophy. There is [id number] low-attenuation in the periventricular white matter consistent with chronic small v essel ischemic change. Broad-based ossific density right parietal region axial Image 26 likely reflec ts osteochondroma is stable. The globes are intact and the visualized sinuses are clear. Patchy ceru men right external artery canal is redemonstrated. IMPRESSION: No acute intracranial hemorrhage or midline shift. There is mild diffuse age-related ce rebral atrophy and mild to moderate chronic small vessel ischemic change redemonstrated. No signific ant change from prior.
--- NOTE | 2020-08-20 08:29 | US ---
EXAMINATION TYPE: US carotid duplex BILAT DATE OF EXAM: 08/19/2020 COMPARISON: NONE CLINICAL HISTORY: I65.23 Occlusion and stenosis of bilateral carotid arteries. Dizziness EXAM MEASUREMENTS: RIGHT: Peak Systolic Velocity (PSV) cm/sec ----- Right CCA: 118 ----- Right ICA: 71.3 ----- Right ECA: 96.5 ICA/CCA ratio: 0.6 RIGHT: End Diastole cm/sec ----- Right CCA: 16.3 ----- Right ICA: 17.0 ----- Right ECA: 0 LEFT: Peak Systolic Velocity (PSV) cm/sec ----- Left CCA: 105 ----- Left ICA: 97.2 ----- Left ECA: 104 ICA/CCA ratio: 0.9 LEFT: End Diastole cm/sec ----- Left CCA: 17.7 ----- Left ICA: 24.5 ----- Left ECA: 0 VERTEBRALS (direction of flow): Right Vertebral: Antegrade Left Vertebral: Antegrade Rhythm: Normal No significant stenosis seen Grayscale, color Doppler, spectral Doppler imaging performed the carotid arteries. Waveform analysis does not show significant stenosis of the internal carotid arteries. IMPRESSION: No hemodynamic significant stenosis of the proximal internal carotid arteries by Doppler criteria, an indirect measurement of carotid stenosis Criteria for Assigning % of Stenosis / Diameter reduction (Estimation based on the indirect measurements of the internal carotid artery velocities (ICA PSV). 1. Normal (no stenosis)=ICA PSV < 125 cm/s: ratio < 2.0: ICA EDV<40 cm/s. 2. Less than 50% stenosis=ICA PSV < 125 cm/s: ratio < 2.0: ICA EDV<40 cm/s. 3. 50 to 69% stenosis=ICA PSV of 125 to 230 cm/s: ration 2.0 ? 4.0: ICA EDV 40-100 cm/s. 4. Greater than 70% stenosis to near occlusion= ICA PSV > 230 cm/s: ratio > 4.0: ICA EDV > 100 cm/s. 5. Near occlusion= ICA PSV velocities may be low or undetectable: variable ratio and ICA EDV. 6. Total occlusion=unable to detect flow.
== END | disposition home or self-care (01) ==
LOC: RADCTMAIN 16:04
PROVIDERS: ATTEND Internal Medicine Geriatric Medicine
DX: I65.23 Occlusion and stenosis of bilateral carotid arteries (principal); I67.82 Cerebral ischemia; G31.9 Degenerative disease of nervous system, unspecified
CPT/HCPCS: 70450; 93880

== ENCOUNTER → 2021-03-21 | Outpatient (CLI) | payer MEDICARE, BC ==
--- NOTE | 2021-03-24 14:44 | MM ---
Reason for exam: screening (asymptomatic). Last mammogram was performed 1 year and 1 month ago. History: Patient is postmenopausal and history of other cancer. Family history of breast cancer in paternal aunt. Cancelled Right Mammotome of the right breast, January 27, 2006. Cancelled Procedure of the right breast, January 27, 2006. Benign core biopsy of both breasts, 2005. Took estrogen for 9 years beginning at age 53. Took progesterone for 9 years beginning at age 53. Physical Findings: A clinical breast exam by your physician is recommended on an annual basis and results should be correlated with mammographic findings. MG 3D Screening Mammo W/Cad Bilateral CC and MLO view(s) were taken. Prior study comparison: February 14, 2020, bilateral MG 3d screening mammo w/cad. January 23, 2019, bilateral MG 3d screening mammo w/cad. The breast tissue is heterogeneously dense. This may lower the sensitivity of mammography. Finding: There are stable, coarse, grouped/clustered calcifications in the left breast. Previous mammotome biopsy in the right and left breast. There is a chronic nodularity in the left breast. No significant changes in finding since February 14, 2020 and January 23, 2019. ASSESSMENT: Benign, BI-RAD 2 RECOMMENDATION: Routine screening mammogram of both breasts in 1 year.
== END | disposition home or self-care (01) ==
LOC: RADMAMWWP 10:36
PROVIDERS: ATTEND Internal Medicine Geriatric Medicine
DX: Z12.31 Encounter for screening mammogram for malignant neoplasm of breast (principal); Z80.3 Family history of malignant neoplasm of breast; Z78.0 Asymptomatic menopausal state
CPT/HCPCS: 77063; 77067

== ENCOUNTER → 2022-03-23 | Outpatient (CLI) | payer MEDICARE, BC ==
--- NOTE | 2022-03-23 14:28 | BD ---
EXAMINATION TYPE: Axial Bone Density DATE OF EXAM: 03/23/2022 COMPARISON: 01/23/2019 CLINICAL HISTORY: 81 years year old Female. ICD-10 CODE: M81.0 Osteoporosis Height: 60 Weight: 121.5 FRAX RISK QUESTIONS: Alcohol (3 or more units per day): NO Family History (Parent hip fracture): MOTHER Glucocorticoids (More than 3mos): NO History of Fracture in Adulthood: RT WRIST, STERNUM, RIBS Secondary Osteoporosis: 1. Type 1 Diabetes: NO 2. Hyperthyroidism: NO 3. Menopause before 45: NO 4. Malnutrition: NO 5. Chronic liver disease: NO Rheumatoid Arthritis: NO Current Tobacco Use: NO RISK FACTORS HISTORY OF: Hip Fracture (Right/Left): NO Spine Fracture: NO History of Wrist Fracture: RT WRIST AGE 72 Surgery to Spine/Hip(right/left)/Wrist (right/left): RT WRIST AGE 72 Family History of Osteoporosis: MOTHER Active: YES Diet low in dairy products/other sources of calcium: NO Postmenopausal woman: YES Take estrogen and/or progesterone medications: NO Lost more than 2 inches in height since high school: NO Frequent falls: NO Poor Health: NO Hyperparathyroidism: NO Adrenal Insufficiency: NO MEDICATIONS: Prednisone or other steroids: NO Thyroid Medications: NO Osteoporosis Medications: NO Additional Medications: ROSUVASTATIN, PANTOPRAZOLE, EXAM MEASUREMENTS: Bone mineral densitometry was performed using the [employer] System. Bone mineral density as measured about the Lumbar spine is: ----- L1-L4(G/cm2): 1.329 T Score Values are as follows: ----- L1: -0.3 ----- L2: 2.0 ----- L3: 2.3 ----- L4: 0.9 ----- L1-L4: 1.2 Bone mineral density has: INCREASED 13.1% % since study of: 01/23/2019 Bone mineral density about the R hip (g/cm2): 0.629 Bone mineral density about the L hip (g/cm2): 0.604 T Score values are as follows: -----R Neck: -2.9 -----L Neck: -3.1 -----R Total: -2.2 -----L Total: -2.1 Bone mineral density has: INCREASED 1.9 01/23/2019% since study of: FRAX%s: The graph provided illustrates a 58.9% chance for a major osteoporotic fx and a 46.6% chance for the hips probability for fx in 10 years time. IMPRESSION: Osteoporosis (T Score less than -2.5). There is increased fracture risk and therapy is usually indicated based on age. Re-Screen 1-2 years. NOTE: T-SCORE=SD OF THE YOUNG ADULT MEAN.
--- NOTE | 2022-03-24 18:06 | MM ---
Reason for Exam: Screening (asymptomatic). Last screening mammogram was performed 12 month(s) ago. Patient History: Menarche at age 12. First Full-Term at age 31. Postmenopausal. Other cancer. Estrogen for 9 years from age 53 until age 62. Progesterone for 9 years from age 53 until age 62. 2006, Bilateral Benign Core Biopsy. 01/27/2006, Cancelled Procedure on the right side. 01/27/2006, Cancelled Right Mammotome on the right side. Paternal aunt had breast cancer. Risk Values: Aura 5 year model risk: 2.4%. NCI Lifetime model risk: 4.1%. Prior Study Comparison: 01/23/2019 Bilateral Screening Mammogram, [facility]. 02/14/2020 Bilateral Screening Mammogram, [facility]. 03/21/2021 Bilateral Screening Mammogram, [facility]. Tissue Density: The breast tissue is heterogeneously dense. This may lower the sensitivity of mammography. Findings: Analyzed By CAD. Multiple grouped coarse calcifications redemonstrated on the left. Benign bilateral vascular calcifications are noted. A microclip on either side from prior biopsies. No significant change from prior exams. Overall Assessment: Benign, BI-RAD 2 Management: Screening Mammogram of both breasts in 1 year. 1. Patient should continue monthly self breast exams. 2. A clinical breast exam by your physician is recommended on an annual basis. 3. This exam should not preclude additional follow-up of suspicious palpable abnormalities. Electronically signed and approved by: Gemini Hernandez M.D. Radiologist
== END | disposition home or self-care (01) ==
LOC: RADBDWWP 12:25
PROVIDERS: ATTEND Internal Medicine Geriatric Medicine
DX: Z12.31 Encounter for screening mammogram for malignant neoplasm of breast (principal); M81.0 Age-related osteoporosis without current pathological fracture; Z78.0 Asymptomatic menopausal state; Z79.52 Long term (current) use of systemic steroids; Z80.3 Family history of malignant neoplasm of breast
CPT/HCPCS: 77063; 77067; 77080

== ENCOUNTER 2022-11-25 18:40 | Emergency (ER) | payer MEDICARE, BC ==
[2022-11-25 18:52] VITALS: TEMP 98
[2022-11-25] MEDS ORDERED: SODIUM CHLORIDE 0.9% 1,000 ML IV STA (19:17)
[2022-11-25] MEDS ORDERED: DEXAMETHASONE SOD PHOSPHATE 10 MG/ML 1 ML VIAL IVP STA (19:18)
[2022-11-25] MEDS ORDERED: KETOROLAC 15 MG/ML 1 ML VIAL IVP STA (19:18)
--- NOTE | 2022-11-25 19:33 | ED ---
Headache HPI - General Chief Complaint: Headache Stated Complaint: URGENT CARE SENT POSS STROKE Time Seen by Provider: 11/25/22 19:05 Source: patient, RN notes reviewed Mode of arrival: ambulatory Limitations: no limitations - History of Present Illness Initial Comments: This is an 82-year-old female who presents to the emergency department for headaches, fatigue, and dizziness. States that over the last 2 weeks, she has been complaining of increasing weakness and overall feels unlike herself. Over the last week, she suddenly started to develop headaches. States that she does not have any substantial history of headaches, and this is very unusual for her. She would not describe these as the worst headaches of her life. States that they're largely in the front of her head and top of her head and describes these as feeling like a pressure sensation. She does get minor relief with ibuprofen. She went to urgent care earlier today, and they sent her to the emergency department to rule out a stroke. The weakness she is experiencing is gen eralized. States that the dizziness is largely positional. Unsure if this is a room spinning sensation or not. Denies any chest pain or shortness of breath. When her daughter arrived, she states that the dizziness has been a longstanding issue for the patient, and the headache is what is new. Denies any fevers, chills, sore throat, cough, dyspnea, chest pain, palpitations, abdominal pain, nausea, vomiting, diarrhea, or back pain. MD Complaint: headache - Related Data Home Medications Medication Instructions Recorded Confirmed Rosuvastatin Calcium 5 mg PO HS 03/08/19 05/05/19 Alendronate Sodium [Fosamax] 70 mg PO TU 05/05/19 05/05/19 Previous Rx's Medication Instructions Recorded Ciprofloxacin HCl [Cipro] 500 mg PO BID 10 Days #5 tab 05/10/19 Ondansetron Odt [Zofran Odt] 4 mg PO Q8HR PRN #20 tab 05/10/19 metroNIDAZOLE [Flagyl] 500 mg PO Q8HR #15 tab 05/10/19 Ketorolac [Toradol] 10 mg PO Q6HR PRN #15 tab 11/25/22 lisinopriL [Zestril] 5 mg PO DAILY #30 tab 11/25/22 Allergies Allergy/AdvReac Type Severity Reaction Status Date / Time codeine Allergy Nausea & Verified 11/25/22 18:52 Vomiting & Diarrhea Review of Systems ROS Statement: Those systems with pertinent positive or pertinent negative responses have been documented in the HPI. ROS Other: All systems not noted in ROS Statement are negative. Past Medical History Past Medical History: Hyperlipidemia, Osteoarthritis (OA) Additional Past Medical History / Comment(s): having occasional diarrhea and stomach cramping, hx diverticulitis History of Any Multi-Drug Resistant Organisms: C-DIFF Date of last positivie culture/infection: 2013 MDRO Source:: stool Past Surgical History: Appendectomy, Section, Cholecystectomy, Heart Catheterization, Orthopedic Surgery Additional Past Surgical History / Comment(s): RUPTURED APPENDIX WITH LAPROSCOPIC REMOVAL (05/12/2013) rt wrist ORIF with plate and screws, manda cataracts Past Anesthesia/Blood Transfusion Reactions: No Reported Reaction Past Psychological History: No Psychological Hx Reported Smoking Status: Never smoker Past Alcohol Use History: Occasional Past Drug Use History: None Reported - Past Family History Father Family Medical History: Cancer Additional Family Medical History / Comment(s): skin General Exam Limitations: no limitations General appearance: alert, in no apparent distress Head exam: Present: atraumatic, normocephalic, normal inspection Eye exam: Present: normal appearance, PERRL, EOMI. Absent: scleral icterus, conjunctival injection, periorbital swelling Pupils: Present: normal accommodation Respiratory exam: Present: normal lung sounds bilaterally. Absent: respiratory distress, wheezes, rales, rhonchi, stridor Cardiovascular Exam: Present: regular rate, normal rhythm, normal heart sounds. Absent: systolic murmur, diastolic murmur, rubs, gallop, clicks Neurological exam: Present: alert, oriented X3, CN II-XII intact Expanded Cerebellar function: Finger to Nose: Normal, Romberg: Normal Motor strength exam: RUE: 5, LUE: 5, RLE: 5, LLE: 5 Psychiatric exam: Present: normal affect, normal mood Skin exam: Present: warm, dry, intact, normal color. Absent: rash Course Vital Signs 11/25/22 11/25/22 18:50 21:27 Temperature 98.0 F Pulse Rate 66 60 Respiratory 20 19 Rate Blood Pressure 191/81 194/79 O2 Sat by Pulse 100 97 Oximetry Medical Decision Making - Medical Decision Making This is an 82-year-old female who presents to the emergency department for headaches and weakness. Was pt. sent in by a medical professional or institution? @ -No Did you speak to anyone other than the patient for history? @ -Yes, her daughter, who advised that the dizziness is not new, the headache is what is primarily concerning for the patient. Did you review nursing and triage notes? @ -Yes, and I agree, it is accurate with regards to the patient's symptoms. Were old charts reviewed? @ -No Differential Diagnosis? @ -Differential Headache: Migraine, tension, cluster, carbon monoxide, central venous thrombosis, pension karma temporal arteritis, acute closure glaucoma, intercranial hemorrhage, mastoiditis, sinusitis, head injury, this is not meant to be an all-inclusive list. EKG interpreted by me (3pts min.)? @ -EKG interpreted by me demonstrating the following: Sinus bradycardia. Ventricular rate 57 bpm, LA interval 179 ms, QRS duration 74 ms, by her daycare QTC 424 ms. X-rays interpreted by me (1pt min.)? @ -Chest x-ray obtained, my interpretation identifies no localized consolidations or infiltrates. CT interpreted by me (1pt min.)? @ -Computed tomography scan of the brain obtained. My interpretation identifies no evidence of an acute intracranial hemorrhage or mass effect. U/S interpreted by me (1pt. min.)? @ -Not obtained What testing was considered but not performed? (CT, X-rays, U/S, labs)? Why? @ -None What meds were considered but not given? Why? @ -None Did you discuss the management of the patient with other professionals? @ -No Did you reconcile home meds? @ -No Was smoking cessation discussed for >3mins.? @ -No Was critical care preformed (if so, how long)? @ -No Were there social determinants of health that impacted care today? How? (Homelessness, low income, unemployed, alcoholism, drug addiction, transportation, low edu. Level, literacy, decrease access to med. care, half-way, rehab)? @ -No Was there de-escalation of care discussed even if they declined? (Discuss DNR or withdrawal of care, Hospice)? @ -No What co-morbidities impacted this encounter? (DM, HTN, Smoking, COPD, CAD, Cancer, CVA, Hep., AIDS, mental health diagnosis, sleep apnea, morbid obesity)? @ -HLD Was patient admitted / discharged? @ -Discharged. Lab work obtained revealing slightly decreased kidney function and no other acute process. We do not have kidney function to compare with since 2019, at which time it was normal. Covid, influenza, and RSV testing were negative. Heterophile testing negative as well. Urinalysis does reveal blood, but no signs of infection. Chest x-ray reveals no acute process. Computed tomography scan of the brain obtained revealing no acute findings. The patient continued to have notably elevated blood pressure, in the 190s systolically. She does not check her blood pressure at home, and states that it has not been checked in 6 months, which was during her last annual wellness visit. However, states that it has always been well-controlled. Discussed the possibility of her blood pressure contributing to these headaches. I did send in a prescription for lisinopril 5 mg. She is instructed to purchase a blood pressure cuff and check her blood pressure several times each day. If it continues to remain elevated to this extent, she is instructed to begin taking the medication once daily. While taking the medication, she'll continue to keep a log of her blood pressure and I advised she stop taking it if her blood pressure were to get too low or she became increasingly dizzy. I did offer admission for the headaches and uncontrolled blood pressures so that she could be evaluated by neurology. However, the patient declined and wished to try managing this on an outpatient basis first. She was given information for neurology follow-up for further evaluation of these headaches, which may or may not be related to her blood pressure. She is also advised to have very close follow-up with her primary care provider. I did also advise that uncontrolled blood pressure does increase her risk for heart attacks and strokes. In addition to the headaches and blood pressure, I advised that she needs to have her urinalysis repeated to ensure that the blood resolves, and if it does not, she may need further evaluation of this as well. Undiagnosed new problem with uncertain prognosis? @ -None Drug Therapy requiring intensive monitoring for toxicity (Heparin, Nitro, Insulin, Cardizem)? @ -None Were any procedures done? @ -None Diagnosis/symptom? @ -Headache, elevated BP without diagnosis of HTN Acute, or Chronic, or Acute on Chronic? @ -Acute Uncomplicated (without systemic symptoms) or Complicated (systemic symptoms)? @ -Uncomplicated Side effects of treatment? @ -None Exacerbation, Progression, or Severe Exacerbation] @ -Not applicable Poses a threat to life or bodily function? @ -Not at this time, however if her BP goes uncontrolled, it increases her risk for heart attacks and strokes. Return precautions reviewed in depth, the patient is instructed to return to the emergency department with any new, worsening, or concerning symptoms. Patient verbalized understanding. This case was discussed in detail with the attending ED physician, Dr. Bernstein. Presentation, findings, and treatment plan discussed in detail as well. - Lab Data Result diagrams: 11/25/22 19:41 11/25/22 19:41 Lab Results 11/25/22 11/25/22 11/25/22 Range/Units 19:41 19:41 19:41 WBC 8.4 (3.8-10.6) k/uL RBC 4.32 (3.80-5.40) m/uL Hgb 13.6 (11.4-16.0) gm/dL Hct 40.4 (34.0-46.0) % MCV 93.6 (80.0-100.0) fL MCH 31.4 (25.0-35.0) pg MCHC 33.6 (31.0-37.0) g/dL RDW 13.3 (11.5-15.5) % Plt Count 346 (150-450) k/uL MPV 7.5 Neutrophils % 67 % Lymphocytes % 22 % Monocytes % 7 % Eosinophils % 1 % Basophils % 1 % Neutrophils # 5.7 (1.3-7.7) k/uL Lymphocytes # 1.8 (1.0-4.8) k/uL Monocytes # 0.6 (0-1.0) k/uL Eosinophils # 0.1 (0-0.7) k/uL Basophils # 0.0 (0-0.2) k/uL PT 9.9 (9.0-12.0) sec INR 0.9 (<1.2) APTT 23.3 (22.0-30.0) sec Sodium (137-145) mmol/L Potassium (3.5-5.1) mmol/L Chloride (98-107) mmol/L Carbon Dioxide (22-30) mmol/L Anion Gap mmol/L BUN (7-17) mg/dL Creatinine (0.52-1.04) mg/dL Est GFR (CKD-EPI)AfAm (>60 ml/min/1.73 sqM) Est GFR (CKD-EPI)NonAf (>60 ml/min/1.73 sqM) Glucose (74-99) mg/dL Plasma Lactic Acid Jacoby (0.7-2.0) mmol/L Calcium (8.4-10.2) mg/dL Total Bilirubin (0.2-1.3) mg/dL AST (14-36) U/L ALT (4-34) U/L Alkaline Phosphatase (38-126) U/L Troponin I (0.000-0.034) ng/mL Total Protein (6.3-8.2) g/dL Albumin (3.5-5.0) g/dL TSH (0.465-4.680) mIU/L Urine Color Colorless Urine Appearance Clear (Clear) Urine pH 5.5 (5.0-8.0) Ur Specific Beaver 1.006 (1.001-1.035) Urine Protein Negative (Negative) Urine Glucose (UA) Negative (Negative) Urine Ketones Negative (Negative) Urine Blood Moderate H (Negative) Urine Nitrite Negative (Negative) Urine Bilirubin Negative (Negative) Urine Urobilinogen <2.0 (<2.0) mg/dL Ur Leukocyte Esterase Negative (Negative) Urine RBC 6 H (0-5) /hpf Urine WBC 1 (0-5) /hpf Heterophile Antibody (Negative) Influenza Type A (PCR) (Not Detectd) Influenza Type B (PCR) (Not Detectd) RSV (PCR) (Not Detectd) SARS-CoV-2 (PCR) (Not Detectd) 11/25/22 11/25/22 11/25/22 Range/Units 19:41 19:41 19:41 WBC (3.8-10.6) k/uL RBC (3.80-5.40) m/uL Hgb (11.4-16.0) gm/dL Hct (34.0-46.0) % MCV (80.0-100.0) fL MCH (25.0-35.0) pg MCHC (31.0-37.0) g/dL RDW (11.5-15.5) % Plt Count (150-450) k/uL MPV Neutrophils % % Lymphocytes % % Monocytes % % Eosinophils % % Basophils % % Neutrophils # (1.3-7.7) k/uL Lymphocytes # (1.0-4.8) k/uL Monocytes # (0-1.0) k/uL Eosinophils # (0-0.7) k/uL Basophils # (0-0.2) k/uL PT (9.0-12.0) sec INR (<1.2) APTT (22.0-30.0) sec Sodium 137 (137-145) mmol/L Potassium 4.5 (3.5-5.1) mmol/L Chloride 101 (98-107) mmol/L Carbon Dioxide 27 (22-30) mmol/L Anion Gap 9 mmol/L BUN 19 H (7-17) mg/dL Creatinine 1.24 H (0.52-1.04) mg/dL Est GFR (CKD-EPI)AfAm 47 (>60 ml/min/1.73 sqM) Est GFR (CKD-EPI)NonAf 41 (>60 ml/min/1.73 sqM) Glucose 83 (74-99) mg/dL Plasma Lactic Acid Jacoby 0.9 (0.7-2.0) mmol/L Calcium 9.7 (8.4-10.2) mg/dL Total Bilirubin 0.4 (0.2-1.3) mg/dL AST 35 (14-36) U/L ALT 21 (4-34) U/L Alkaline Phosphatase 95 (38-126) U/L Troponin I <0.012 (0.000-0.034) ng/mL Total Protein 7.7 (6.3-8.2) g/dL Albumin 4.2 (3.5-5.0) g/dL TSH 2.340 (0.465-4.680) mIU/L Urine Color Urine Appearance (Clear) Urine pH (5.0-8.0) Ur Specific Beaver (1.001-1.035) Urine Protein (Negative) Urine Glucose (UA) (Negative) Urine Ketones (Negative) Urine Blood (Negative) Urine Nitrite (Negative) Urine Bilirubin (Negative) Urine Urobilinogen (<2.0) mg/dL Ur Leukocyte Esterase (Negative) Urine RBC (0-5) /hpf Urine WBC (0-5) /hpf Heterophile Antibody (Negative) Influenza Type A (PCR) (Not Detectd) Influenza Type B (PCR) (Not Detectd) RSV (PCR) (Not Detectd) SARS-CoV-2 (PCR) (Not Detectd) 11/25/22 11/25/22 Range/Units 19:41 19:41 WBC (3.8-10.6) k/uL RBC (3.80-5.40) m/uL Hgb (11.4-16.0) gm/dL Hct (34.0-46.0) % MCV (80.0-100.0) fL MCH (25.0-35.0) pg MCHC (31.0-37.0) g/dL RDW (11.5-15.5) % Plt Count (150-450) k/uL MPV Neutrophils % % Lymphocytes % % Monocytes % % Eosinophils % % Basophils % % Neutrophils # (1.3-7.7) k/uL Lymphocytes # (1.0-4.8) k/uL Monocytes # (0-1.0) k/uL Eosinophils # (0-0.7) k/uL Basophils # (0-0.2) k/uL PT (9.0-12.0) sec INR (<1.2) APTT (22.0-30.0) sec Sodium (137-145) mmol/L Potassium (3.5-5.1) mmol/L Chloride (98-107) mmol/L Carbon Dioxide (22-30) mmol/L Anion Gap mmol/L BUN (7-17) mg/dL Creatinine (0.52-1.04) mg/dL Est GFR (CKD-EPI)AfAm (>60 ml/min/1.73 sqM) Est GFR (CKD-EPI)NonAf (>60 ml/min/1.73 sqM) Glucose (74-99) mg/dL Plasma Lactic Acid Jacoby (0.7-2.0) mmol/L Calcium (8.4-10.2) mg/dL Total Bilirubin (0.2-1.3) mg/dL AST (14-36) U/L ALT (4-34) U/L Alkaline Phosphatase (38-126) U/L Troponin I (0.000-0.034) ng/mL Total Protein (6.3-8.2) g/dL Albumin (3.5-5.0) g/dL TSH (0.465-4.680) mIU/L Urine Color Urine Appearance (Clear) Urine pH (5.0-8.0) Ur Specific Beaver (1.001-1.035) Urine Protein (Negative) Urine Glucose (UA) (Negative) Urine Ketones (Negative) Urine Blood (Negative) Urine Nitrite (Negative) Urine Bilirubin (Negative) Urine Urobilinogen (<2.0) mg/dL Ur Leukocyte Esterase (Negative) Urine RBC (0-5) /hpf Urine WBC (0-5) /hpf Heterophile Antibody Negative (Negative) Influenza Type A (PCR) Not Detected (Not Detectd) Influenza Type B (PCR) Not Detected (Not Detectd) RSV (PCR) Not Detected (Not Detectd) SARS-CoV-2 (PCR) Not Detected (Not Detectd) - Radiology Data Radiology results: report reviewed, image reviewed Disposition Clinical Impression: Headache, Elevated BP without diagnosis of hypertension, Hematuria Disposition: HOME SELF-CARE Instructions (If sedation given, give patient instructions): How to Take a Blood Pressure (ED), Acute Headache (ED), Hypertension (ED), Hypertension in the Older Adult (ED) Additional Instructions: Return to the emergency department with any new, worsening, or concerning symptoms. You can try taking the Toradol up to every 6 hours as needed for pain relief. If you choose to take the Toradol, do not take any other anti- inflammatories such as ibuprofen, take one or the other. You may take Tylenol with any of these medications. You can also try using [id number] decongestants, Excedrin Migraine, or Flonase nasal spray. Some be people also get relief from taking magnesium supplements. I listed two neurology providers below. Contact the offices tomorrow morning and let them know that you were s een in the emergency department for new onset headaches and need to be scheduled for a follow-up appointment. Additionally, start taking the lisinopril once daily for management of your blood pressure. You should also check your blood pressure several times a day and keep a log of these values. If after taking the medication for blood pressure, your blood pressure goes below 100-110 on the top number, or you develop increasing dizziness, stop taking it. Follow up with your primary care provider in 1-2 days for reevaluation of headaches and your blood pressure. Prescriptions: Ketorolac [Toradol] 10 mg PO Q6HR PRN #15 tab PRN Reason: Pain lisinopriL [Zestril] 5 mg PO DAILY #30 tab Is patient prescribed a controlled substance at d/c from ED?: No Referrals: Osvaldo Rouse MD [Primary Care Provider] - 1-2 days Navin Moctezuma DO [STAFF PHYSICIAN] - 1-2 days Shaggy Ventura MD [Medical Doctor] - 1-2 days
[2022-11-25 19:58] LABS: Appearance,Urine Clear (Clear); Bilirubin,Urine Negative (Negative); Blood,Urine Moderate (Negative); Color,Urine Colorless; Glucose,Urine (UA) Negative (Negative); Ketones,Urine Negative (Negative); Leukocyte Esterase,Urine Negative (Negative); Nitrite,Urine Negative (Negative); PH, Urine 5.5 (5.0-8.0); Protein,Urine Negative (Negative); RBC,Urine 6 /hpf (0-5); Specific Gravity,Urine 1.006 (1.001-1.035); Urobilinogen,Urine <2.0 mg/dL (<2.0); WBC,Urine 1 /hpf (0-5)
[2022-11-25 20:03] LABS: Basophils % (A) 1 %; Eosinophils # (A) 0.1 k/uL (0-0.7); Eosinophils % (A) 1 %; HCT 40.4 % (34.0-46.0); HGB 13.6 gm/dL (11.4-16.0); Lymphocytes # (A) 1.8 k/uL (1.0-4.8); Lymphocytes % (A) 22 %; MCH 31.4 pg (25.0-35.0); MCHC 33.6 g/dL (31.0-37.0); MCV 93.6 fL (80.0-100.0); Mean Platelet Volume 7.5; Monocytes # (A) 0.6 k/uL (0-1.0); Monocytes % (A) 7 %; Neutrophils # (A) 5.7 k/uL (1.3-7.7); Neutrophils % (A) 67 %; Platelet Count 346 k/uL (150-450); RBC 4.32 m/uL (3.80-5.40); RDW 13.3 % (11.5-15.5); WBC 8.4 k/uL (3.8-10.6)
[2022-11-25 20:12] LABS: INR 0.9 (<1.2); Partial Thromboplastin Time 23.3 sec (22.0-30.0); Prothrombin Time 9.9 sec (9.0-12.0)
--- NOTE | 2022-11-25 20:24 | CT ---
EXAMINATION TYPE: CT brain wo con DATE OF EXAM: 11/25/2022 COMPARISON: 08/19/2020 HISTORY: 82-year-old female severe headache TECHNIQUE: Examination was done in axial plane without intravenous contrast. Coronal and sagittal r econstructions performed. CT DLP: 1099.4 mGycm Automated exposure control for dose reduction was used. FINDINGS: There is no evidence of acute intracranial hemorrhage, acute ischemic changes, mass, mass-effect, or extra-axial fluid collection. There is no effacement of cerebral sulci or basal subarachnoid cister ns. There is no hydrocephalus. There is no midline shift. Pelaez-white matter distinction is preserv ed. Prostatic calcifications in the carotid siphons. Moderate patchy white matter hypodensities in both c erebral hemispheres. Benign basal ganglia calcifications on both sides. Moderate mucosal thickening floor right maxillary sinus. There is a 2.1 cm osteoma protruding from th e outer table of the right parietal convexity. IMPRESSION: No acute intracranial abnormality seen. Moderate patchy burden of chronic small vessel ischemic disea se.
[2022-11-25 20:37] LABS: ALT 21 U/L (4-34); AST 35 U/L (14-36); African American GFR (CKD) 47 (>60 ml/min/1.73 sqM); Albumin 4.2 g/dL (3.5-5.0); Alkaline Phosphatase 95 U/L (38-126); Anion Gap 9 mmol/L; Blood Urea Nitrogen 19 mg/dL (7-17); Calcium 9.7 mg/dL (8.4-10.2); Carbon Dioxide 27 mmol/L (22-30); Chloride 101 mmol/L (98-107); Glucose 83 mg/dL (74-99); Non-African American GFR(CKD) 41 (>60 ml/min/1.73 sqM); Potassium 4.5 mmol/L (3.5-5.1); Sodium 137 mmol/L (137-145); Total Bilirubin 0.4 mg/dL (0.2-1.3); Total Protein 7.7 g/dL (6.3-8.2)
--- NOTE | 2022-11-25 20:40 | XR ---
EXAMINATION TYPE: XR chest 2V DATE OF EXAM: 11/25/2022 8:02 PM COMPARISON: Chest radiographs from 05/05/2019 TECHNIQUE: XR chest 2V Frontal and lateral views of the chest. CLINICAL INDICATION:Female, 82 years old with history of Weakness; FINDINGS: Lungs/Pleura: Prominent interstitial lung markings are seen scattered throughout the lungs. No eviden ce of focal consolidation, pneumothorax or pleural effusion. Pulmonary vascularity: Unremarkable. Heart/mediastinum: Cardiomediastinal silhouette is unremarkable. Atherosclerotic calcifications are seen in the aorta. Musculoskeletal: No acute osseous pathology. IMPRESSION: No no change from prior, acute cardiopulmonary disease/process.
[2022-11-25 21:28] VITALS: BP 194/79; PULSE 60; RESP 19
== END 2022-11-25 21:58 | disposition home or self-care (01) ==
LOC: EC 18:40
DX: R51.9 Headache, unspecified (principal); R03.0 Elevated blood-pressure reading, without diagnosis of hypertension; R31.9 Hematuria, unspecified; R00.1 Bradycardia, unspecified; E78.5 Hyperlipidemia, unspecified; M19.90 Unspecified osteoarthritis, unspecified site; Z20.822 Contact with and (suspected) exposure to COVID-19; Z79.899 Other long term (current) drug therapy; Z88.5 Allergy status to narcotic agent
CPT/HCPCS: 36415; 93005; 80053; 84443; 83605; 84484; 85025; 85610; 85730; 86308; 81001; 87636; 71046; 70450; 99285; 96374; 96375; 96361; J1100; J1885

== ENCOUNTER → 2023-03-24 | Outpatient (CLI) | payer MEDICARE, BC ==
--- NOTE | 2023-03-26 14:15 | MM ---
Reason for Exam: Screening (asymptomatic). Last screening mammogram was performed 12 month(s) ago. Patient History: Menarche at age 12. First Full-Term at age 31. Postmenopausal. Other cancer. Estrogen for 9 years from age 53 until age 62. Progesterone for 9 years from age 53 until age 62. 2006, Bilateral Benign Core Biopsy. 01/27/2006, Cancelled Procedure on the right side. 01/27/2006, Cancelled Right Mammotome on the right side. Paternal aunt had breast cancer. Risk Values: Aura 5 year model risk: 2.4%. NCI Lifetime model risk: 3.7%. Prior Study Comparison: 02/14/2020 Bilateral Screening Mammogram, [facility]. 03/21/2021 Bilateral Screening Mammogram, [facility]. 03/23/2022 Bilateral MG 3D screening mammo w/cad, [facility]. Tissue Density: The breast tissue is heterogeneously dense. This may lower the sensitivity of mammography. Findings: Analyzed By CAD. Bilateral breast biopsy clips. There is no suspicious group of microcalcifications or new suspicious mass. Benign-appearing calcifications bilaterally. Overall Assessment: Benign, BI-RAD 2 Management: Screening Mammogram of both breasts in [address] [facility] will attempt to contact patient to return for supplemental views and ultrasound if indicated. Patient should continue monthly self-breast exams. A clinical breast exam by your physician is recommended on an annual basis. This exam should not preclude additional follow-up of suspicious palpable abnormalities. Note on Aura scores and lifetime risk: 1. A Aura score greater than 3% is considered moderate risk. If this is the case, consider specialist referral to assess eligibility for a risk reducing agent. 2. If overall lifetime risk for the development of breast cancer is 20% or higher, the patient may qualify for future screening with alternating mammogram and breast MRI. Electronically signed and approved by: Dav Francisco DO
== END | disposition home or self-care (01) ==
LOC: RADMAMWWP 10:46
PROVIDERS: ATTEND Internal Medicine Geriatric Medicine
DX: Z12.31 Encounter for screening mammogram for malignant neoplasm of breast (principal); Z80.3 Family history of malignant neoplasm of breast; Z78.0 Asymptomatic menopausal state
CPT/HCPCS: 77063; 77067

== ENCOUNTER → 2024-03-27 | Outpatient (CLI) | payer MEDICARE, BC ==
--- NOTE | 2024-03-29 22:06 | BD ---
EXAMINATION TYPE: Axial Bone Density DATE OF EXAM: 03/27/2024 CLINICAL HISTORY: 83 years old Female. ICD-10 CODE: M81.0 OSTEOPOROSIS , Additional History: Height: 59.5 in Weight: 123 lbs FRAX RISK QUESTIONS: Family History (Parent hip fracture): yes mother History of Fracture in Adulthood: rt wrist fx age 71 RISK FACTORS HISTORY OF: History of Wrist Fracture: rt wrist fx age 73 Surgery to Wrist (right): age 73 MEDICATIONS: Osteoporosis Medications: yes Which medication: Boniva How Lon year EXAM MEASUREMENTS: Bone mineral densitometry was performed using the [employer] System. Bone mineral density as measured about the Lumbar spine is: ----- L1-L4(G/cm2): 1.433 T Score Values are as follows: ----- L1: -0.9 ----- L2: 3.5 ----- L3: 4.1 ----- L4: 1.5 ----- L1-L4: 2.1 Z Score Values are as follows: ----- L1: 1.2 ----- L2: 5.6 ----- L3: 6.2 ----- L4: 3.6 ----- L1-L4: 4.3 Bone mineral density has: Increased 7.8% since study of: 03/23/2022 Bone mineral density about the R hip (g/cm2): 0.757 Bone mineral density about the L hip (g/cm2): 0.741 T Score values are as follows: -----R Neck: -2.8 -----L Neck: -2.9 -----R Total: -2.0 -----L Total: -2.1 Z Score values are as follows: -----R Neck: -0.4 -----L Neck: -0.4 -----R Total: 0.3 -----L Total: 0.2 Bone mineral density has: Increased 1.8% since study of: 03/23/2022 FRAX%s: The graph provided illustrates a 54.3% chance for a major osteoporotic fx and a 41.4% chance for the hips probability for fx in 10 years time. IMPRESSION: Osteoporosis (T Score less than -2.5). There is increased fracture risk and therapy is usually indicated based on age. Re-Screen 1-2 years. NOTE: T-SCORE=SD OF THE YOUNG ADULT MEAN. [facility], , 03/29/2024 10:04 PM
--- NOTE | 2024-03-30 19:03 | MM ---
Reason for Exam: Screening (asymptomatic). Last screening mammogram was performed 12 month(s) ago. Patient History: Menarche at age 12. First Full-Term at age 31. Postmenopausal. Other cancer. Estrogen for 9 years from age 53 until age 62. Progesterone for 9 years from age 53 until age 62. 2006, Bilateral Benign Core Biopsy. 01/27/2006, Cancelled Procedure on the right side. 01/27/2006, Cancelled Right Mammotome on the right side. Paternal aunt had breast cancer. Risk Values: Aura 5 year model risk: 2.3%. NCI Lifetime model risk: 3.3%. Prior Study Comparison: 03/21/2021 Bilateral Screening Mammogram, [facility]. 03/23/2022 Bilateral MG 3D screening mammo w/cad, [facility]. 03/24/2023 Bilateral MG 3D screening mammo w/cad, [facility]. Tissue Density: The breasts are heterogeneously dense, which may obscure small masses. Findings: Analyzed By CAD. The pattern is symmetrical. No significant interval change is evident. Coarse calcification appear stable within the left breast. Benign vascular calcifications present bilaterally No suspicious groups of microcalcifications, spiculated or lobular masses, architectural distortion or other secondary signs of malignancy are mammographically apparent. Overall Assessment: Benign, BI-RAD 2 Management: Screening Mammogram of both breasts in 1 year. A negative mammogram report should not preclude additional follow up of suspicious palpable abnormalities. Patient should continue monthly self breast exam. A clinical breast exam by your physician is recommended on an annual basis and results should be correlated with mammographic findings. Note on Aura scores and lifetime risk: 1. A Aura score greater than 3% is considered moderate risk. If this is the case, consider specialist referral to assess eligibility for a risk reducing agent. 2. If overall lifetime risk for the development of breast cancer is 20% or higher, the patient may qualify for future screening with alternating mammogram and breast MRI. [facility], , 03/30/2024 7:00 PM. Electronically signed and approved by: Ludwin Starks D.O. Radiologis
== END | disposition home or self-care (01) ==
LOC: RADMAMWWP 12:16
PROVIDERS: ATTEND Internal Medicine Geriatric Medicine
DX: Z12.31 Encounter for screening mammogram for malignant neoplasm of breast (principal); M81.0 Age-related osteoporosis without current pathological fracture; Z78.0 Asymptomatic menopausal state; Z80.3 Family history of malignant neoplasm of breast; R92.333 Mammographic heterogeneous density, bilateral breasts
CPT/HCPCS: 77063; 77067; 77080